=== PATIENT | female | born 1975 ===

== ENCOUNTER 2020-08-31 15:12 | Outpatient (REF) | payer MEDICAID, SELFPAY ==
--- NOTE | 2020-08-31 15:19 | MM_ITS ---
EXAMINATION: MM SCREENING DIGITAL BREAST TOMOSYNTHESIS, BILATERAL CLINICAL INFORMATION: Screening. Asymptomatic. The lifetime risk of breast cancer based on the Tyrer-Cuzick Model is 7%. COMPARISON: Mammography: Initial exam TECHNIQUE: Digital breast tomosynthesis is performed in both the craniocaudal and mediolateral oblique views along with computer-aided detection (CAD). Synthesized 2D images are generated from the tomosynthesis. Craniocaudal view of the right breast axilla using digital breast Tomosynthesis was. FINDINGS: There are scattered areas of fibroglandular density (ACR BI-RADS breast composition Category b). There are no significant masses, abnormal calcifications, or other abnormalities. MM/MM tomosynthesis screening BI IMPRESSION: No mammographic evidence of malignancy. ASSESSMENT: BI-RADS 1: Negative RECOMMENDATION: Routine annual mammography screening. This patient's information was entered into a reminder system with a target due date for their next mammogram.
== END 2020-08-31 15:13 | disposition home or self-care (01) ==
LOC: HO.MAMMO 15:12
PROVIDERS: PCP Pediatrics; Visit Provider Pediatrics
DX: Z12.31 Encounter for screening mammogram for malignant neoplasm of breast (principal)
CPT/HCPCS: 77063; 77067

== ENCOUNTER 2022-08-03 15:10 | Emergency (ER) | payer MEDICAID, SELFPAY ==
[2022-08-03] VITALS (10 sets, daily range): BP systolic 132–159; BP diastolic 55–91; PULSE 64–98; RESP 14–20; TEMP 36.6–36.9; O2SAT 99–100; BMI 32.0
--- NOTE | 2022-08-03 15:16 | ECG_ITS ---
Test Reason : dizziness Blood Pressure : / mmHG Vent. Rate : 067 BPM Atrial Rate : 067 BPM P-R Int : 126 ms QRS Dur : 084 ms QT Int : 390 ms P-R-T Axes : 004 011 -03 degrees QTc Int : 412 ms Normal sinus rhythm with sinus arrhythmia Normal ECG When compared with ECG of 13-NOV-2019 08:19, Nonspecific T wave abnormality, improved in Anterolateral leads QT has shortened Referred By: Zulema Rosado Electronically Signed By:MEAGAN ADAMS MD
--- NOTE | 2022-08-03 15:19 | ED.GENADULT ---
HPI - General Adult General Chief complaint: General Medical <TAVO Kent - Last Filed: 08/03/22 16:07> Stated complaint: Diff Breathing <TAVO Kent - Last Filed: 08/03/22 16:07> Time Seen by Provider: 08/03/22 16:10 <TAVO Kent - Last Filed: 08/03/22 16:07> Source: patient and family <Hailey Baptiste MD - Last Filed: 08/04/22 02:42> Mode of arrival: ambulatory <Hailey Baptiste MD - Last Filed: 08/04/22 02:42> History of Present Illness HPI narrative: 46-year-old female with history of menorrhagia, diabetes as well as hypertension presents with concerns regarding shortness of breath that is been progressively worsening with time and 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 Patient states that she swallows water and it bothers her to eat. Otherwise, she denies any fever, chills, GI or symptoms and states her last menstrual period was approximately 3 weeks ago. She endorses that she informed her PCP almost a year ago that she wanted to have her uterus removed because of the large amount of menstrual bleeding that she was experiencing. Otherwise patient denies any chest pain/palpitations. She also denies any use of cigarettes or history of asthma. <Hailey Baptiste MD - Last Filed: 08/04/22 02:42> Related Data Allergies/adverse reactions: Allergies Allergy/AdvReac Type Severity Reaction Status Date / Time No Known Allergies Allergy Verified 08/03/22 15:15 <TAVO Kent - Last Filed: 08/03/22 16:07> Review of Systems Review of Systems: Pertinent positives and negatives as stated in HPI 10 point review of systems is otherwise negative. <Hailey Batpiste MD - Last Filed: 08/04/22 02:42> PMFSH Past Medical History Source: nursing notes reviewed <Hailey Baptiste MD - Last Filed: 08/04/22 02:42> Social History Social History: Social History Advance Directives: No Advance Directives Information Provided: No <TAVO Kent - Last Filed: 08/03/22 16:07> Physical Exam ED Vital Signs: Vital Signs - 24 hr 08/03/22 15:15 08/03/22 16:52 08/03/22 17:55 Temperature 97.9 F 98.0 F Pulse Rate 98 85 77 Respiratory Rate 18 18 18 Blood Pressure 142/72 H 154/65 H 143/76 H Pulse Oximetry 99 100 Oxygen Delivery Method Room Air Room Air 08/03/22 18:16 08/03/22 20:44 08/03/22 20:51 Temperature 98.2 F 98.5 F 98.5 F Pulse Rate 86 64 72 Respiratory Rate 14 14 14 Blood Pressure 146/91 H 159/79 H 159/79 H Pulse Oximetry Oxygen Delivery Method 08/03/22 22:30 08/03/22 21:07 08/03/22 23:30 Temperature 98.1 F 98.3 F 98.3 F Pulse Rate 72 78 78 Respiratory Rate 14 20 20 Blood Pressure 153/55 H 153/55 H 153/55 H Pulse Oximetry 100 Oxygen Delivery Method Room Air 08/03/22 23:48 08/04/22 00:06 08/04/22 02:06 Temperature 98.1 F 98.1 F Pulse Rate 81 77 60 Respiratory Rate 16 20 23 H Blood Pressure 132/72 144/78 H 163/71 H Pulse Oximetry Oxygen Delivery Method 08/04/22 02:12 08/04/22 02:08 08/04/22 02:38 Temperature 97.9 F 97.9 F 97.2 F Pulse Rate 60 59 62 Respiratory Rate 22 H 21 H 21 H Blood Pressure 163/71 H 163/71 H 153/94 H Pulse Oximetry 99 Oxygen Delivery Method Room Air BMI result Body Mass Index 32.0 <TAVO Kent - Last Filed: 08/03/22 16:07> Vital Signs - 24 hr 08/03/22 15:15 08/03/22 16:52 08/03/22 17:55 Temperature 97.9 F 98.0 F Pulse Rate 98 85 77 Respiratory Rate 18 18 18 Blood Pressure 142/72 H 154/65 H 143/76 H Pulse Oximetry 99 100 Oxygen Delivery Method Room Air Room Air 08/03/22 18:16 08/03/22 20:44 08/03/22 20:51 Temperature 98.2 F 98.5 F 98.5 F Pulse Rate 86 64 72 Respiratory Rate 14 14 14 Blood Pressure 146/91 H 159/79 H 159/79 H Pulse Oximetry Oxygen Delivery Method 08/03/22 22:30 08/03/22 21:07 08/03/22 23:30 Temperature 98.1 F 98.3 F 98.3 F Pulse Rate 72 78 78 Respiratory Rate 14 20 20 Blood Pressure 153/55 H 153/55 H 153/55 H Pulse Oximetry 100 Oxygen Delivery Method Room Air 08/03/22 23:48 08/04/22 00:06 08/04/22 02:06 Temperature 98.1 F 98.1 F Pulse Rate 81 77 60 Respiratory Rate 16 20 23 H Blood Pressure 132/72 144/78 H 163/71 H Pulse Oximetry Oxygen Delivery Method 08/04/22 02:12 08/04/22 02:08 08/04/22 02:38 Temperature 97.9 F 97.9 F 97.2 F Pulse Rate 60 59 62 Respiratory Rate 22 H 21 H 21 H Blood Pressure 163/71 H 163/71 H 153/94 H Pulse Oximetry 99 Oxygen Delivery Method Room Air BMI result Body Mass Index 32.0 VITAL SIGNS: Reviewed. GENERAL: Well developed, well nourished, in no acute distress. HEAD: Normocephalic/atraumatic EYES: PERRLA, EOMI EARS: Ext canals without abnormality OROPHARYNX: no oral lesions noted, posterior pharynx clear, pale mucosa NECK: Supple, no adenopathy LUNGS: Normal breath sounds. No adventitious sounds or accessory muscle use. SpO2<99> CARDIOVASCULAR: Regular rate and rhythm without noted murmurs ABDOMEN: Soft, non-tender, non-distended with bowel sounds. MUSCULOSKELETAL: No tenderness, deformities, or effusions noted on gross inspection. EXTREMITIES: No cyanosis, clubbing or edema. SKIN: Inspection of the skin reveals no rashes NEUROLOGIC: Alert and oriented x 4. Strength and sensation to light touch were grossly intact x 4. <Hailey Baptiste MD - Last Filed: 08/04/22 02:42> Course Course Course Narrative: RME--46yoF PMHx ACS c/o throat closing sensation and SOB with assoc dizziness s/p eating bread at work. Sx lasted few mins, feels better at present. EKG, Labs, COVID/flu, strep ordered in traige -1606--Critical H/H 5.6/21.5 > Occult stool, Type and Screen and 1U RBCs ordered in triage > pt being moved to the main ED <TAVO Kent - Last Filed: 08/03/22 16:07> RME--46yoF PMHx ACS c/o throat closing sensation and SOB with assoc dizziness s/p eating bread at work. Sx lasted few mins, feels better at present. EKG, Labs, COVID/flu, strep ordered in traige -1606--Critical H/H 5.6/21.5 > Occult stool, Type and Screen and 1U RBCs ordered in triage > pt being moved to the main ED This is a 46-year-old female with history and clinical presentation consistent with gradual and progressive blood loss anemia secondary to menorrhagia. MCV is chronically stable but there is some noted decrease and I do not feel that this is acute blood loss from other sources given patient's history. As she will be having her next menstrual cycle will transfuse with 3 units. Afterwards, she will be provided with a referral to follow-up with Dr. Walters. On re-evaluation patient is feeling much better after the 3 units RBCs, will repeat H&H and discharged home with a referral to follow-up with Dr. Walters. <Hailey Baptiste MD - Last Filed: 08/04/22 02:42> Medical Decision Making Lab Data Result diagrams: : 08/03/22 16:33 08/03/22 15:27 <TAVO Kent - Last Filed: 08/03/22 16:07> Labs: Lab Results 08/03/22 08/03/22 08/03/22 Range/Units 15:27 15:27 15:27 WBC 5.0 (4.8-10.8) X10*3/uL RBC 4.04 L (4.20-5.50) X10*6/uL Hgb 5.6 L* (12.0-16.0) g/dl Hct 21.5 L (37.0-47.0) % MCV 53.2 L (80.0-98.0) fL MCH 13.9 L (27.0-33.0) pg MCHC 26.0 L (31.0-35.0) g/dl RDW 20.5 H (11.0-16.0) % Plt Count 330 (160-400) X10*3/uL MPV Not Reportable Immature Gran % (Auto) Cancelled Neut % (Auto) Cancelled Lymph % (Auto) Cancelled [place] % (Auto) Cancelled Eos % (Auto) Cancelled Baso % (Auto) Cancelled Lymph # (Auto) Cancelled [place] # (Auto) Cancelled Eos # (Auto) Cancelled Baso # (Auto) Cancelled Abs Immat Gran (auto) Cancelled Absolute Neuts (auto) Cancelled Absolute Nucleated RBC 0.000 (0.0-0.012) X10*3/uL Nucleated RBC % (auto) 0.0 (0.0-0.2) /100WBC Neutrophils % (Manual) 58 (45-73) % Band Neutrophils % 0 L (3-5) % Lymphocytes % (Manual) 32 (20-40) % Monocytes % (Manual) 2 (2-11) % Eosinophils % (Manual) 2 (0-4) % Basophils % (Manual) 6 H (0-2) % Abs Neuts (Manual) 2.9 (2.0-8.3) X10*3/uL Lymphocytes # (Manual) 1.6 (1.2-4.9) X10*3/uL Monocytes # (Manual) 0.1 (0.1-1.2) X10*3/uL Eosinophils # (Manual) 0.1 (0.0-0.4) X10*3/uL Basophils # (Manual) 0.3 H (0.0-0.2) X10*3/uL Platelet Estimate NORMAL (NORMAL) Large Platelets PRESENT Plt Morphology Comment NOTED RBC Morphology NOTED Hypochromasia 3+ (>30) /OIF Microcytosis 2+ (15-30) /OIF Stomatocytes 1+ (5-14) /OIF Sodium 137 (135-145) mmol/L Potassium 4.0 (3.3-5.1) mmol/L Chloride 104 (96-108) mmol/L Carbon Dioxide 24 (22-29) mmol/L Anion Gap 13 (12-20) BUN 17 H (9-16) mg/dL Creatinine 0.79 (0.5-1.4) mg/dL Estim Creat Clear Calc 87.7 Estimated GFR > 60 Random Glucose 100 (60-115) mg/dL Calcium 8.6 (8.4-10.2) mg/dL Magnesium 1.9 (1.6-2.6) mg/dL Total Bilirubin 0.9 (0.0-1.0) mg/dL Direct Bilirubin 0.3 (0.0-0.5) mg/dL AST 16 (5-31) U/L ALT 12 (0-31) U/L Alkaline Phosphatase 54 (39-117) U/L Troponin I High Sens < 3.5 (<3.5-17.0) ng/L Total Protein 6.7 (6.5-8.0) g/dL Albumin 3.9 (3.5-5.0) g/dL Urine Color Urine Appearance Urine pH (5.0-9.0) Ur Specific [place] (1.005-1.025) Urine Protein (Neg-Trace) mg/dL Urine Glucose (UA) (Negative) mg/dL Urine Ketones (Negative) mg/dL Urine Blood (Negative) Urine Nitrite (Negative) Ur Leukocyte Esterase (Negative) COVID-19 (EDISON) (Negative) COVID-19 Clin Com Influenza Type A (JANICE) (Negative) Influenza Type B (JANICE) (Negative) Influenza A & B Note S. pyogenes GrpA JANICE (Negative) Blood Type Antibody Screen Crossmatch 08/03/22 08/03/22 08/03/22 Range/Units 15:27 15:27 15:27 WBC (4.8-10.8) X10*3/uL RBC (4.20-5.50) X10*6/uL Hgb (12.0-16.0) g/dl Hct (37.0-47.0) % MCV (80.0-98.0) fL MCH (27.0-33.0) pg MCHC (31.0-35.0) g/dl RDW (11.0-16.0) % Plt Count (160-400) X10*3/uL MPV Immature Gran % (Auto) Neut % (Auto) Lymph % (Auto) [place] % (Auto) Eos % (Auto) Baso % (Auto) Lymph # (Auto) [place] # (Auto) Eos # (Auto) Baso # (Auto) Abs Immat Gran (auto) Absolute Neuts (auto) Absolute Nucleated RBC (0.0-0.012) X10*3/uL Nucleated RBC % (auto) (0.0-0.2) /100WBC Neutrophils % (Manual) (45-73) % Band Neutrophils % (3-5) % Lymphocytes % (Manual) (20-40) % Monocytes % (Manual) (2-11) % Eosinophils % (Manual) (0-4) % Basophils % (Manual) (0-2) % Abs Neuts (Manual) (2.0-8.3) X10*3/uL Lymphocytes # (Manual) (1.2-4.9) X10*3/uL Monocytes # (Manual) (0.1-1.2) X10*3/uL Eosinophils # (Manual) (0.0-0.4) X10*3/uL Basophils # (Manual) (0.0-0.2) X10*3/uL Platelet Estimate (NORMAL) Large Platelets Plt Morphology Comment RBC Morphology Hypochromasia /OIF Microcytosis /OIF Stomatocytes /OIF Sodium (135-145) mmol/L Potassium (3.3-5.1) mmol/L Chloride (96-108) mmol/L Carbon Dioxide (22-29) mmol/L Anion Gap (12-20) BUN (9-16) mg/dL Creatinine (0.5-1.4) mg/dL Estim Creat Clear Calc Estimated GFR Random Glucose (60-115) mg/dL Calcium (8.4-10.2) mg/dL Magnesium (1.6-2.6) mg/dL Total Bilirubin (0.0-1.0) mg/dL Direct Bilirubin (0.0-0.5) mg/dL AST (5-31) U/L ALT (0-31) U/L Alkaline Phosphatase (39-117) U/L Troponin I High Sens (<3.5-17.0) ng/L Total Protein (6.5-8.0) g/dL Albumin (3.5-5.0) g/dL Urine Color Urine Appearance Urine pH (5.0-9.0) Ur Specific [place] (1.005-1.025) Urine Protein (Neg-Trace) mg/dL Urine Glucose (UA) (Negative) mg/dL Urine Ketones (Negative) mg/dL Urine Blood (Negative) Urine Nitrite (Negative) Ur Leukocyte Esterase (Negative) COVID-19 (EDISON) Negative (Negative) COVID-19 Clin Com See Note Influenza Type A (JANICE) Negative (Negative) Influenza Type B (JANICE) Negative (Negative) Influenza A & B Note See Note S. pyogenes GrpA JANICE Negative (Negative) Blood Type Antibody Screen Crossmatch 08/03/22 08/03/22 08/03/22 Range/Units 16:33 16:47 17:22 WBC (4.8-10.8) X10*3/uL RBC (4.20-5.50) X10*6/uL Hgb 5.9 L* (12.0-16.0) g/dl Hct 22.3 L (37.0-47.0) % MCV (80.0-98.0) fL MCH (27.0-33.0) pg MCHC (31.0-35.0) g/dl RDW (11.0-16.0) % Plt Count (160-400) X10*3/uL MPV Immature Gran % (Auto) Neut % (Auto) Lymph % (Auto) [place] % (Auto) Eos % (Auto) Baso % (Auto) Lymph # (Auto) [place] # (Auto) Eos # (Auto) Baso # (Auto) Abs Immat Gran (auto) Absolute Neuts (auto) Absolute Nucleated RBC (0.0-0.012) X10*3/uL Nucleated RBC % (auto) (0.0-0.2) /100WBC Neutrophils % (Manual) (45-73) % Band Neutrophils % (3-5) % Lymphocytes % (Manual) (20-40) % Monocytes % (Manual) (2-11) % Eosinophils % (Manual) (0-4) % Basophils % (Manual) (0-2) % Abs Neuts (Manual) (2.0-8.3) X10*3/uL Lymphocytes # (Manual) (1.2-4.9) X10*3/uL Monocytes # (Manual) (0.1-1.2) X10*3/uL Eosinophils # (Manual) (0.0-0.4) X10*3/uL Basophils # (Manual) (0.0-0.2) X10*3/uL Platelet Estimate (NORMAL) Large Platelets Plt Morphology Comment RBC Morphology Hypochromasia /OIF Microcytosis /OIF Stomatocytes /OIF Sodium (135-145) mmol/L Potassium (3.3-5.1) mmol/L Chloride (96-108) mmol/L Carbon Dioxide (22-29) mmol/L Anion Gap (12-20) BUN (9-16) mg/dL Creatinine (0.5-1.4) mg/dL Estim Creat Clear Calc Estimated GFR Random Glucose (60-115) mg/dL Calcium (8.4-10.2) mg/dL Magnesium (1.6-2.6) mg/dL Total Bilirubin (0.0-1.0) mg/dL Direct Bilirubin (0.0-0.5) mg/dL AST (5-31) U/L ALT (0-31) U/L Alkaline Phosphatase (39-117) U/L Troponin I High Sens (<3.5-17.0) ng/L Total Protein (6.5-8.0) g/dL Albumin (3.5-5.0) g/dL Urine Color Yellow Urine Appearance Clear Urine pH 5.5 (5.0-9.0) Ur Specific [place] 1.015 (1.005-1.025) Urine Protein Negative (Neg-Trace) mg/dL Urine Glucose (UA) Negative (Negative) mg/dL Urine Ketones Negative (Negative) mg/dL Urine Blood Negative (Negative) Urine Nitrite Negative (Negative) Ur Leukocyte Esterase Negative (Negative) COVID-19 (EDISON) (Negative) COVID-19 Clin Com Influenza Type A (JANICE) (Negative) Influenza Type B (JANICE) (Negative) Influenza A & B Note S. pyogenes GrpA JANICE (Negative) Blood Type O Positive Antibody Screen NEGATIVE Crossmatch See Detail <TAVO Kent - Last Filed: 08/03/22 16:07> Lab Results 08/03/22 08/03/22 08/03/22 Range/Units 15:27 15:27 15:27 WBC 5.0 (4.8-10.8) X10*3/uL RBC 4.04 L (4.20-5.50) X10*6/uL Hgb 5.6 L* (12.0-16.0) g/dl Hct 21.5 L (37.0-47.0) % MCV 53.2 L (80.0-98.0) fL MCH 13.9 L (27.0-33.0) pg MCHC 26.0 L (31.0-35.0) g/dl RDW 20.5 H (11.0-16.0) % Plt Count 330 (160-400) X10*3/uL MPV Not Reportable Immature Gran % (Auto) Cancelled Neut % (Auto) Cancelled Lymph % (Auto) Cancelled [place] % (Auto) Cancelled Eos % (Auto) Cancelled Baso % (Auto) Cancelled Lymph # (Auto) Cancelled [place] # (Auto) Cancelled Eos # (Auto) Cancelled Baso # (Auto) Cancelled Abs Immat Gran (auto) Cancelled Absolute Neuts (auto) Cancelled Absolute Nucleated RBC 0.000 (0.0-0.012) X10*3/uL Nucleated RBC % (auto) 0.0 (0.0-0.2) /100WBC Neutrophils % (Manual) 58 (45-73) % Band Neutrophils % 0 L (3-5) % Lymphocytes % (Manual) 32 (20-40) % Monocytes % (Manual) 2 (2-11) % Eosinophils % (Manual) 2 (0-4) % Basophils % (Manual) 6 H (0-2) % Abs Neuts (Manual) 2.9 (2.0-8.3) X10*3/uL Lymphocytes # (Manual) 1.6 (1.2-4.9) X10*3/uL Monocytes # (Manual) 0.1 (0.1-1.2) X10*3/uL Eosinophils # (Manual) 0.1 (0.0-0.4) X10*3/uL Basophils # (Manual) 0.3 H (0.0-0.2) X10*3/uL Platelet Estimate NORMAL (NORMAL) Large Platelets PRESENT Plt Morphology Comment NOTED RBC Morphology NOTED Hypochromasia 3+ (>30) /OIF Microcytosis 2+ (15-30) /OIF Stomatocytes 1+ (5-14) /OIF Sodium 137 (135-145) mmol/L Potassium 4.0 (3.3-5.1) mmol/L Chloride 104 (96-108) mmol/L Carbon Dioxide 24 (22-29) mmol/L Anion Gap 13 (12-20) BUN 17 H (9-16) mg/dL Creatinine 0.79 (0.5-1.4) mg/dL Estim Creat Clear Calc 87.7 Estimated GFR > 60 Random Glucose 100 (60-115) mg/dL Calcium 8.6 (8.4-10.2) mg/dL Magnesium 1.9 (1.6-2.6) mg/dL Total Bilirubin 0.9 (0.0-1.0) mg/dL Direct Bilirubin 0.3 (0.0-0.5) mg/dL AST 16 (5-31) U/L ALT 12 (0-31) U/L Alkaline Phosphatase 54 (39-117) U/L Troponin I High Sens < 3.5 (<3.5-17.0) ng/L Total Protein 6.7 (6.5-8.0) g/dL Albumin 3.9 (3.5-5.0) g/dL Urine Color Urine Appearance Urine pH (5.0-9.0) Ur Specific [place] (1.005-1.025) Urine Protein (Neg-Trace) mg/dL Urine Glucose (UA) (Negative) mg/dL Urine Ketones (Negative) mg/dL Urine Blood (Negative) Urine Nitrite (Negative) Ur Leukocyte Esterase (Negative) COVID-19 (EDISON) (Negative) COVID-19 Clin Com Influenza Type A (JANICE) (Negative) Influenza Type B (JANICE) (Negative) Influenza A & B Note S. pyogenes GrpA JANICE (Negative) Blood Type Antibody Screen Crossmatch 08/03/22 08/03/22 08/03/22 Range/Units 15:27 15:27 15:27 WBC (4.8-10.8) X10*3/uL RBC (4.20-5.50) X10*6/uL Hgb (12.0-16.0) g/dl Hct (37.0-47.0) % MCV (80.0-98.0) fL MCH (27.0-33.0) pg MCHC (31.0-35.0) g/dl RDW (11.0-16.0) % Plt Count (160-400) X10*3/uL MPV Immature Gran % (Auto) Neut % (Auto) Lymph % (Auto) [place] % (Auto) Eos % (Auto) Baso % (Auto) Lymph # (Auto) [place] # (Auto) Eos # (Auto) Baso # (Auto) Abs Immat Gran (auto) Absolute Neuts (auto) Absolute Nucleated RBC (0.0-0.012) X10*3/uL Nucleated RBC % (auto) (0.0-0.2) /100WBC Neutrophils % (Manual) (45-73) % Band Neutrophils % (3-5) % Lymphocytes % (Manual) (20-40) % Monocytes % (Manual) (2-11) % Eosinophils % (Manual) (0-4) % Basophils % (Manual) (0-2) % Abs Neuts (Manual) (2.0-8.3) X10*3/uL Lymphocytes # (Manual) (1.2-4.9) X10*3/uL Monocytes # (Manual) (0.1-1.2) X10*3/uL Eosinophils # (Manual) (0.0-0.4) X10*3/uL Basophils # (Manual) (0.0-0.2) X10*3/uL Platelet Estimate (NORMAL) Large Platelets Plt Morphology Comment RBC Morphology Hypochromasia /OIF Microcytosis /OIF Stomatocytes /OIF Sodium (135-145) mmol/L Potassium (3.3-5.1) mmol/L Chloride (96-108) mmol/L Carbon Dioxide (22-29) mmol/L Anion Gap (12-20) BUN (9-16) mg/dL Creatinine (0.5-1.4) mg/dL Estim Creat Clear Calc Estimated GFR Random Glucose (60-115) mg/dL Calcium (8.4-10.2) mg/dL Magnesium (1.6-2.6) mg/dL Total Bilirubin (0.0-1.0) mg/dL Direct Bilirubin (0.0-0.5) mg/dL AST (5-31) U/L ALT (0-31) U/L Alkaline Phosphatase (39-117) U/L Troponin I High Sens (<3.5-17.0) ng/L Total Protein (6.5-8.0) g/dL Albumin (3.5-5.0) g/dL Urine Color Urine Appearance Urine pH (5.0-9.0) Ur Specific [place] (1.005-1.025) Urine Protein (Neg-Trace) mg/dL Urine Glucose (UA) (Negative) mg/dL Urine Ketones (Negative) mg/dL Urine Blood (Negative) Urine Nitrite (Negative) Ur Leukocyte Esterase (Negative) COVID-19 (EDISON) Negative (Negative) COVID-19 Clin Com See Note Influenza Type A (JANICE) Negative (Negative) Influenza Type B (JANICE) Negative (Negative) Influenza A & B Note See Note S. pyogenes GrpA JANICE Negative (Negative) Blood Type Antibody Screen Crossmatch 08/03/22 08/03/22 08/03/22 Range/Units 16:33 16:47 17:22 WBC (4.8-10.8) X10*3/uL RBC (4.20-5.50) X10*6/uL Hgb 5.9 L* (12.0-16.0) g/dl Hct 22.3 L (37.0-47.0) % MCV (80.0-98.0) fL MCH (27.0-33.0) pg MCHC (31.0-35.0) g/dl RDW (11.0-16.0) % Plt Count (160-400) X10*3/uL MPV Immature Gran % (Auto) Neut % (Auto) Lymph % (Auto) [place] % (Auto) Eos % (Auto) Baso % (Auto) Lymph # (Auto) [place] # (Auto) Eos # (Auto) Baso # (Auto) Abs Immat Gran (auto) Absolute Neuts (auto) Absolute Nucleated RBC (0.0-0.012) X10*3/uL Nucleated RBC % (auto) (0.0-0.2) /100WBC Neutrophils % (Manual) (45-73) % Band Neutrophils % (3-5) % Lymphocytes % (Manual) (20-40) % Monocytes % (Manual) (2-11) % Eosinophils % (Manual) (0-4) % Basophils % (Manual) (0-2) % Abs Neuts (Manual) (2.0-8.3) X10*3/uL Lymphocytes # (Manual) (1.2-4.9) X10*3/uL Monocytes # (Manual) (0.1-1.2) X10*3/uL Eosinophils # (Manual) (0.0-0.4) X10*3/uL Basophils # (Manual) (0.0-0.2) X10*3/uL Platelet Estimate (NORMAL) Large Platelets Plt Morphology Comment RBC Morphology Hypochromasia /OIF Microcytosis /OIF Stomatocytes /OIF Sodium (135-145) mmol/L Potassium (3.3-5.1) mmol/L Chloride (96-108) mmol/L Carbon Dioxide (22-29) mmol/L Anion Gap (12-20) BUN (9-16) mg/dL Creatinine (0.5-1.4) mg/dL Estim Creat Clear Calc Estimated GFR Random Glucose (60-115) mg/dL Calcium (8.4-10.2) mg/dL Magnesium (1.6-2.6) mg/dL Total Bilirubin (0.0-1.0) mg/dL Direct Bilirubin (0.0-0.5) mg/dL AST (5-31) U/L ALT (0-31) U/L Alkaline Phosphatase (39-117) U/L Troponin I High Sens (<3.5-17.0) ng/L Total Protein (6.5-8.0) g/dL Albumin (3.5-5.0) g/dL Urine Color Yellow Urine Appearance Clear Urine pH 5.5 (5.0-9.0) Ur Specific [place] 1.015 (1.005-1.025) Urine Protein Negative (Neg-Trace) mg/dL Urine Glucose (UA) Negative (Negative) mg/dL Urine Ketones Negative (Negative) mg/dL Urine Blood Negative (Negative) Urine Nitrite Negative (Negative) Ur Leukocyte Esterase Negative (Negative) COVID-19 ([place]) (Negative) COVID-19 Clin Com Influenza Type A ([facility]ANICE) (Negative) Influenza Type B (JANICE) (Negative) Influenza A & B Note S. pyogenes GrpA JANICE (Negative) Blood Type O Positive Antibody Screen NEGATIVE Crossmatch See Detail <Hailey Baptiste MD - Last Filed: 08/04/22 02:42> ECG Data Attestation: I personally reviewed and interpreted this ECG as follows: <Hailey Baptiste MD - Last Filed: 08/04/22 02:42> Prior ECG tracings: available for review <Hailey Baptiste MD - Last Filed: 08/04/22 02:42> Interpretation: NSR, HR-67, no STEMI, OK/QRS/QTC is within normal limits. <Hailey Baptiste MD - Last Filed: 08/04/22 02:42> Critical Care Time Critical Care Time Critical Care Time: Yes <Hailey Baptiste MD - Last Filed: 08/04/22 02:42> Total Critical Care Time: 30 <Hailey Baptiste MD - Last Filed: 08/04/22 02:42> Attestation: I personally attest to this time spent taking care of the patient. <Hailey Baptiste MD - Last Filed: 08/04/22 02:42> Discharge Plan Discharge Clinical Impression: Menorrhagia, Acute blood loss anemia <TAVO Kent - Last Filed: 08/03/22 16:07> Patient Disposition: Home, Self-Care <TAVO Kent - Last Filed: 08/03/22 16:07> Instructions: Menorrhagia (ED), Anemia (ED) <TAVO Kent - Last Filed: 08/03/22 16:07> Additional Instructions: 1. Start taking [id number] iron pills, daily. 2. You have been given a referral to follow-up with Dr. Walters (gynecology). 3. Follow-up with your primary care provider as well. Return to the ER for worsening symptoms. <TAVO Kent - Last Filed: 08/03/22 16:07> Referrals: Itzel Ashford MD [Primary Care Provider] - Jason Walters MD [Physician] - <TAVO Kent - Last Filed: 08/03/22 16:07>
[2022-08-03 15:36] LABS: Hematocrit 21.5 % (37.0-47.0); Mean Corpuscular Hemoglobin 13.9 pg (27.0-33.0); PLT CLUMP 1; Red Blood Count 4.04 X10*6/uL (4.20-5.50); Red Cell Distribution Width 20.5 % (11.0-16.0)
[2022-08-03 15:48] LABS: Alanine Aminotransferase 12 U/L (0-31); Albumin Level 3.9 g/dL (3.5-5.0); Alkaline Phosphatase 54 U/L (39-117); Anion Gap 13 (12-20); Aspartate Amino Transferase 16 U/L (5-31); Bilirubin Direct 0.3 mg/dL (0.0-0.5); Bilirubin Total 0.9 mg/dL (0.0-1.0); Blood Urea Nitrogen 17 mg/dL (9-16); Calcium 8.6 mg/dL (8.4-10.2); Carbon Dioxide 24 mmol/L (22-29); Chloride 104 mmol/L (96-108); Creatinine Clr Calc Pharmacy 87.7; Estimated Glomerular Filt Rate > 60; Glucose Random 100 mg/dL (60-115); Sodium 137 mmol/L (135-145); Total Protein 6.7 g/dL (6.5-8.0)
[2022-08-03 15:50] LABS: Strep A Nucleic Acid Negative (Negative)
[2022-08-03 15:52] LABS: Troponin-I High Sensitivity < 3.5 ng/L (<3.5-17.0)
[2022-08-03 15:54] LABS: COVID-19 Test Negative (Negative); IDNOW Serial# 16C4AD1C; Influenza A Negative (Negative); Influenza B2 Negative (Negative)
[2022-08-03 16:02] LABS: Mean Corpuscular Volume 53.2 fL (80.0-98.0); PLT ABN DIST 1
[2022-08-03 16:03] LABS: Platelet Count 330 X10*3/uL (160-400)
[2022-08-03 16:06] LABS: Hemoglobin 5.6 g/dl (12.0-16.0)
[2022-08-03 16:21] LABS: Band Neutrophils Percent 0 % (3-5); Basophils Abs Manual 0.3 X10*3/uL (0.0-0.2); Basophils Percent Manual 6 % (0-2); Eosinophils Absolute Manual 0.1 X10*3/uL (0.0-0.4); Eosinophils Percent Manual 2 % (0-4); Hypochromasia 3+ (>30) /OIF; Large Platelet PRESENT; Lymphocytes Absolute Manual 1.6 X10*3/uL (1.2-4.9); Lymphocytes Percent Manual 32 % (20-40); Microcytosis 2+ (15-30) /OIF; Monocytes Absolute Manual 0.1 X10*3/uL (0.1-1.2); Monocytes Percent Manual 2 % (2-11); Neutrophils Absolute Manual 2.9 X10*3/uL (2.0-8.3); Neutrophils Percent Manual 58 % (45-73); Platelet Estimate NORMAL (NORMAL); Platelet Morphology Comment NOTED; RBC Morphology NOTED; Stomatocytes 1+ (5-14) /OIF
[2022-08-03 16:41] LABS: Magnesium 1.9 mg/dL (1.6-2.6)
[2022-08-03 16:50] LABS: Hematocrit 22.3 % (37.0-47.0)
[2022-08-03 17:00] LABS: Hemoglobin 5.9 g/dl (12.0-16.0)
--- NOTE | 2022-08-03 17:08 | PC.NURSE ---
PT c/o of increase tiredness, fatigue, and weakness for about 2 weeks. Denies chest pain and dizziness. LSCTA.
[2022-08-03 17:37] LABS: Appearance Urine Clear; Color Urine Yellow; Glucose Urine UA Negative (Negative); Leukocyte Esterase Urine Negative (Negative); Nitrite Urine Negative (Negative); PH 5.5 (5.0-9.0); Specific Gravity - Urine 1.015 (1.005-1.025); Urine Blood Negative (Negative); Urine Ketones Negative (Negative); Urine Protein Negative (Neg-Trace)
--- NOTE | 2022-08-03 18:17 | PC.NURSE ---
First unit of blood transfusion started. PT denies nausea, CP, and chills. Afebrile. VSS.
[2022-08-04 00:06] VITALS: BP 144/78; PULSE 77; RESP 20; TEMP 36.7
[2022-08-04 02:06] VITALS: BP 163/71; PULSE 60; RESP 23
[2022-08-04 02:08] VITALS: BP 163/71; PULSE 59; RESP 21; TEMP 36.6; O2SAT 99
[2022-08-04 02:12] VITALS: BP 163/71; PULSE 60; RESP 22; TEMP 36.6
[2022-08-04 02:38] VITALS: BP 153/94; PULSE 62; RESP 21; TEMP 36.2
[2022-08-04 02:58] VITALS: BP 155/87; PULSE 62; RESP 14; TEMP 36.6; O2SAT 99
[2022-08-04 03:19] LABS: Hematocrit 31.1 % (37.0-47.0); Hemoglobin 9.2 g/dl (12.0-16.0)
== END 2022-08-04 04:43 | disposition home or self-care (01) ==
PROVIDERS: Physician Assistant; Student in an Organized Health Care Education/Training Program; Emergency Provider Internal Medicine; PCP Pediatrics
DX: N92.0 Excessive and frequent menstruation with regular cycle (principal); D62 Acute posthemorrhagic anemia; R06.02 Shortness of breath; E11.9 Type 2 diabetes mellitus without complications; I10 Essential (primary) hypertension; Z20.822 Contact with and (suspected) exposure to COVID-19
CPT/HCPCS: 36415; 36430; 80048; 80076; 81003; 83735; 84484; 85007; 85014; 85018; 85025; 85027; 86850; 86900; 86901; 86923; 87502; 87635; 87651; 93005; 99284; 99285; P9016

== ENCOUNTER 2022-10-27 18:41 | Emergency (ER) | payer MEDICAID, SELFPAY ==
--- NOTE | ~2022-10-27 | XR_ITS ---
EXAMINATION: XR CHEST CLINICAL INFORMATION: Chest pain COMPARISON: None TECHNIQUE: 2 views of the chest were obtained. FINDINGS: No significant abnormality is noted involving the heart, lungs, mediastinum, bony thorax or soft tissues. XR/XR chest 2V IMPRESSION: Unremarkable chest examination.
[2022-10-27 18:46] VITALS: BP 188/101; PULSE 76; RESP 18; TEMP 36.7; O2SAT 100; BMI 34.3
--- NOTE | 2022-10-27 18:46 | ED.GENADULT ---
HPI - General Adult General Chief complaint: Chest Pain <TAVO Bahena - Last Filed: 10/27/22 18:48> Stated complaint: Vision Blurry, Chest pain <TAVO Bahena - Last Filed: 10/27/22 18:48> Time Seen by Provider: 10/27/22 20:21 <TAVO Bahena - Last Filed: 10/27/22 18:48> Source: patient <Benny Petersen MD - Last Filed: 10/28/22 00:33> Mode of arrival: ambulatory <Benny Petersen MD - Last Filed: 10/28/22 00:33> Limitations: no limitations <Benny Petersen MD - Last Filed: 10/28/22 00:33> History of Present Illness HPI narrative: Patient with history of hypertension used to take medication 2 years ago after gastric sleeve surgery patient's blood pressure been stable and not taking her medications as she does not need the medication for blood pressure anymore today while at work patient felt as if she had high blood pressure so she took aspirin and lisinopril on arrival patient's blood pressure was 188/101 patient does have anxiety and stress increased blood pressure also <Benny Petersen MD - Last Filed: 10/28/22 00:33> Related Data Allergies/adverse reactions: Allergies Allergy/AdvReac Type Severity Reaction Status Date / Time No Known Allergies Allergy Verified 08/03/22 15:15 <TAVO Bahena - Last Filed: 10/27/22 18:48> Review of Systems Review of Systems: Yes all other systems are reviewed and are negative <Benny Petersen MD - Last Filed: 10/28/22 00:33> [facility] Social History Social History: Social History Advance Directives: No Advance Directives Information Provided: No <TAVO Bahena - Last Filed: 10/27/22 18:48> Physical Exam ED Vital Signs: Vital Signs - 24 hr 10/27/22 18:46 10/27/22 20:12 Temperature 98.0 F 98.3 F Pulse Rate 76 61 Respiratory Rate 18 16 Blood Pressure 188/101 H 160/82 H Pulse Oximetry 100 100 Oxygen Delivery Method Room Air Room Air BMI result Body Mass Index 34.3 <TAVO Bahena - Last Filed: 10/27/22 18:48> Vital Signs - 24 hr 10/27/22 18:46 10/27/22 20:12 Temperature 98.0 F 98.3 F Pulse Rate 76 61 Respiratory Rate 18 16 Blood Pressure 188/101 H 160/82 H Pulse Oximetry 100 100 Oxygen Delivery Method Room Air Room Air BMI result Body Mass Index 34.3 <Benny Petersen MD - Last Filed: 10/28/22 00:33> Appearance: Alert. Oriented X3. No acute distress. Eyes: No pallor or icterus ENT: Pharynx normal. Oral Mucosa moist Neck: Normal inspection. Neck supple. CVS: Normal heart rate and rhythm. Pulses normal. Respiratory: No respiratory distress. Equal air entry bilateral, no wheezing/rales/rhonchi Abdomen: Soft and nontender. Bowel sounds are present, no mass palpable, no CVA tenderness Skin: Skin warm and dry. Normal skin color. Normal skin turgor. Extremities: No lower extremity edema. No calf tenderness Neuro: Oriented X 3. No motor deficit. No sensory deficit.No cerebellar signs , cranial nerves II-XII intact <Benny Petersen MD - Last Filed: 10/28/22 00:33> Course Course Course Narrative: RME performed by Brinda Schulz PA-C. Patient is a 47 year old female presenting to the emergency department with palpitations. Patient states that she was having chest pain at work and took her blood pressure medication just in case her blood pressure was high . Labs, EKG, CXR ordered. Patient placed back in the waiting room pending room availability and results. <TAVO Bahena - Last Filed: 10/27/22 18:48> Medical Decision Making Medical Decision Making MDM Narrative: Patient with. Family history of hypertension with history of hypertension which improved after gastric sleeve surgery now having blood pressure again. Advised to continue lisinopril and hydrochlorothiazide as prescribed and follow with PCP <Benny Petersen MD - Last Filed: 10/28/22 00:33> Lab Data MDM Lab Attestation statement: I reviewed the patient's lab results. <Benny Petersen MD - Last Filed: 10/28/22 00:33> Result Diagrams: 10/27/22 19:21 10/27/22 19:21 <TAVO Bahena - Last Filed: 10/27/22 18:48> Labs: Lab Results 10/27/22 10/27/22 10/27/22 Range/Units 19:21 19:21 19:21 WBC 5.0 (4.8-10.8) X10*3/uL RBC 4.35 (4.20-5.50) X10*6/uL Hgb 9.5 L (12.0-16.0) g/dl Hct 30.9 L (37.0-47.0) % MCV 71.0 L (80.0-98.0) fL MCH 21.8 L (27.0-33.0) pg MCHC 30.7 L (31.0-35.0) g/dl RDW 17.4 H (11.0-16.0) % Plt Count 322 (160-400) X10*3/uL MPV 10.1 (9.4-12.3) fL Immature Gran % (Auto) 0.0 (0.0-0.4) % Neut % (Auto) 55.9 (45-73) % Lymph % (Auto) 32.0 (20-40) % [place] % (Auto) 8.7 (2-11) % Eos % (Auto) 2.2 (0-4) % Baso % (Auto) 1.2 (0-2) % Lymph # (Auto) 1.6 (1.2-4.9) X10*3/uL [place] # (Auto) 0.4 (0.1-1.2) X10*3/uL Eos # (Auto) 0.1 (0.0-0.4) X10*3/uL Baso # (Auto) 0.1 (0.0-0.2) X10*3/uL Abs Immat Gran (auto) 0.00 (0.00-0.03) X10*3/uL Absolute Neuts (auto) 2.8 (2.0-8.3) x10*3/uL Absolute Nucleated RBC 0.000 (0.0-0.012) X10*3/uL Nucleated RBC % (auto) 0.0 (0.0-0.2) /100WBC Sodium 138 (135-145) mmol/L Potassium 3.7 (3.3-5.1) mmol/L Chloride 104 (96-108) mmol/L Carbon Dioxide 23 (22-29) mmol/L Anion Gap 15 (12-20) BUN 13 (9-16) mg/dL Creatinine 0.72 (0.5-1.4) mg/dL Estim Creat Clear Calc 98.8 Estimated GFR > 60 Random Glucose 121 H (60-115) mg/dL Calcium 9.1 (8.4-10.2) mg/dL Magnesium 2.2 (1.6-2.6) mg/dL Total Bilirubin 0.8 (0.0-1.0) mg/dL AST 19 (5-31) U/L ALT 14 (0-31) U/L Alkaline Phosphatase 67 (39-117) U/L Troponin I High Sens < 3.5 (<3.5-17.0) ng/L Total Protein 6.9 (6.5-8.0) g/dL Albumin 4.0 (3.5-5.0) g/dL Influenza Type A (PCR) (Negative) Influenza Type B (PCR) (Negative) RSV RNA Qual (PCR) (Negative) SARS-CoV-2 RNA (RT-PCR) (Negative) 10/27/22 Range/Units 19:21 WBC (4.8-10.8) X10*3/uL RBC (4.20-5.50) X10*6/uL Hgb (12.0-16.0) g/dl Hct (37.0-47.0) % MCV (80.0-98.0) fL MCH (27.0-33.0) pg MCHC (31.0-35.0) g/dl RDW (11.0-16.0) % Plt Count (160-400) X10*3/uL MPV (9.4-12.3) fL Immature Gran % (Auto) (0.0-0.4) % Neut % (Auto) (45-73) % Lymph % (Auto) (20-40) % [place] % (Auto) (2-11) % Eos % (Auto) (0-4) % Baso % (Auto) (0-2) % Lymph # (Auto) (1.2-4.9) X10*3/uL [place] # (Auto) (0.1-1.2) X10*3/uL Eos # (Auto) (0.0-0.4) X10*3/uL Baso # (Auto) (0.0-0.2) X10*3/uL Abs Immat Gran (auto) (0.00-0.03) X10*3/uL Absolute Neuts (auto) (2.0-8.3) x10*3/uL Absolute Nucleated RBC (0.0-0.012) X10*3/uL Nucleated RBC % (auto) (0.0-0.2) /100WBC Sodium (135-145) mmol/L Potassium (3.3-5.1) mmol/L Chloride (96-108) mmol/L Carbon Dioxide (22-29) mmol/L Anion Gap (12-20) BUN (9-16) mg/dL Creatinine (0.5-1.4) mg/dL Estim Creat Clear Calc Estimated GFR Random Glucose (60-115) mg/dL Calcium (8.4-10.2) mg/dL Magnesium (1.6-2.6) mg/dL Total Bilirubin (0.0-1.0) mg/dL AST (5-31) U/L ALT (0-31) U/L Alkaline Phosphatase (39-117) U/L Troponin I High Sens (<3.5-17.0) ng/L Total Protein (6.5-8.0) g/dL Albumin (3.5-5.0) g/dL Influenza Type A (PCR) NEGATIVE (Negative) Influenza Type B (PCR) NEGATIVE (Negative) RSV RNA Qual (PCR) NEGATIVE (Negative) SARS-CoV-2 RNA (RT-PCR) NEGATIVE (Negative) <TAVO Bahena - Last Filed: 10/27/22 18:48> Lab Results 10/27/22 10/27/22 10/27/22 Range/Units 19:21 19:21 19:21 WBC 5.0 (4.8-10.8) X10*3/uL RBC 4.35 (4.20-5.50) X10*6/uL Hgb 9.5 L (12.0-16.0) g/dl Hct 30.9 L (37.0-47.0) % MCV 71.0 L (80.0-98.0) fL MCH 21.8 L (27.0-33.0) pg MCHC 30.7 L (31.0-35.0) g/dl RDW 17.4 H (11.0-16.0) % Plt Count 322 (160-400) X10*3/uL MPV 10.1 (9.4-12.3) fL Immature Gran % (Auto) 0.0 (0.0-0.4) % Neut % (Auto) 55.9 (45-73) % Lymph % (Auto) 32.0 (20-40) % [place] % (Auto) 8.7 (2-11) % Eos % (Auto) 2.2 (0-4) % Baso % (Auto) 1.2 (0-2) % Lymph # (Auto) 1.6 (1.2-4.9) X10*3/uL [place] # (Auto) 0.4 (0.1-1.2) X10*3/uL Eos # (Auto) 0.1 (0.0-0.4) X10*3/uL Baso # (Auto) 0.1 (0.0-0.2) X10*3/uL Abs Immat Gran (auto) 0.00 (0.00-0.03) X10*3/uL Absolute Neuts (auto) 2.8 (2.0-8.3) x10*3/uL Absolute Nucleated RBC 0.000 (0.0-0.012) X10*3/uL Nucleated RBC % (auto) 0.0 (0.0-0.2) /100WBC Sodium 138 (135-145) mmol/L Potassium 3.7 (3.3-5.1) mmol/L Chloride 104 (96-108) mmol/L Carbon Dioxide 23 (22-29) mmol/L Anion Gap 15 (12-20) BUN 13 (9-16) mg/dL Creatinine 0.72 (0.5-1.4) mg/dL Estim Creat Clear Calc 98.8 Estimated GFR > 60 Random Glucose 121 H (60-115) mg/dL Calcium 9.1 (8.4-10.2) mg/dL Magnesium 2.2 (1.6-2.6) mg/dL Total Bilirubin 0.8 (0.0-1.0) mg/dL AST 19 (5-31) U/L ALT 14 (0-31) U/L Alkaline Phosphatase 67 (39-117) U/L Troponin I High Sens < 3.5 (<3.5-17.0) ng/L Total Protein 6.9 (6.5-8.0) g/dL Albumin 4.0 (3.5-5.0) g/dL Influenza Type A (PCR) (Negative) Influenza Type B (PCR) (Negative) RSV RNA Qual (PCR) (Negative) SARS-CoV-2 RNA (RT-PCR) (Negative) 10/27/22 Range/Units 19:21 WBC (4.8-10.8) X10*3/uL RBC (4.20-5.50) X10*6/uL Hgb (12.0-16.0) g/dl Hct (37.0-47.0) % MCV (80.0-98.0) fL MCH (27.0-33.0) pg MCHC (31.0-35.0) g/dl RDW (11.0-16.0) % Plt Count (160-400) X10*3/uL MPV (9.4-12.3) fL Immature Gran % (Auto) (0.0-0.4) % Neut % (Auto) (45-73) % Lymph % (Auto) (20-40) % [place] % (Auto) (2-11) % Eos % (Auto) (0-4) % Baso % (Auto) (0-2) % Lymph # (Auto) (1.2-4.9) X10*3/uL [place] # (Auto) (0.1-1.2) X10*3/uL Eos # (Auto) (0.0-0.4) X10*3/uL Baso # (Auto) (0.0-0.2) X10*3/uL Abs Immat Gran (auto) (0.00-0.03) X10*3/uL Absolute Neuts (auto) (2.0-8.3) x10*3/uL Absolute Nucleated RBC (0.0-0.012) X10*3/uL Nucleated RBC % (auto) (0.0-0.2) /100WBC Sodium (135-145) mmol/L Potassium (3.3-5.1) mmol/L Chloride (96-108) mmol/L Carbon Dioxide (22-29) mmol/L Anion Gap (12-20) BUN (9-16) mg/dL Creatinine (0.5-1.4) mg/dL Estim Creat Clear Calc Estimated GFR Random Glucose (60-115) mg/dL Calcium (8.4-10.2) mg/dL Magnesium (1.6-2.6) mg/dL Total Bilirubin (0.0-1.0) mg/dL AST (5-31) U/L ALT (0-31) U/L Alkaline Phosphatase (39-117) U/L Troponin I High Sens (<3.5-17.0) ng/L Total Protein (6.5-8.0) g/dL Albumin (3.5-5.0) g/dL Influenza Type A (PCR) NEGATIVE (Negative) Influenza Type B (PCR) NEGATIVE (Negative) RSV RNA Qual (PCR) NEGATIVE (Negative) SARS-CoV-2 RNA (RT-PCR) NEGATIVE (Negative) <Benny Petersen MD - Last Filed: 10/28/22 00:33> Independent Interpretation I performed an independent interpretation of an: EKG <Benny Petersen MD - Last Filed: 10/28/22 00:33> Interpretation: Normal sinus rhythm heart rate 62 beats per minute normal interval normal axis no acute ST changes impression normal EKG <Benny Petersen MD - Last Filed: 10/28/22 00:33> Discharge Plan Discharge Clinical Impression: Essential hypertension <TAVO Bahena - Last Filed: 10/27/22 18:48> Patient Disposition: Home, Self-Care <TAVO Bahena - Last Filed: 10/27/22 18:48> Instructions: Hypertension (ED) <TAVO Bahena - Last Filed: 10/27/22 18:48> Additional Instructions: Decrease salt intake Take your lisinopril/hydrochlorothiazide tablet daily Check blood pressure before taking the medication and before going to bed Blood pressure should be less than 135/85 Do not take the blood pressure medication if blood pressure is less than 130/80 <TAVO Bahena - Last Filed: 10/27/22 18:48> Stand Alone Forms: Work/School Release <TAVO Bahena - Last Filed: 10/27/22 18:48> Interventions: ED Discharge Assessment Last Done: 10/27/22 21:09 <TAVO Bahena - Last Filed: 10/27/22 18:48> Discharge Date/Time: 10/27/22 21:09 <TAVO Bahena - Last Filed: 10/27/22 18:48>
--- NOTE | 2022-10-27 18:48 | ECG_ITS ---
Test Reason : CP Blood Pressure : / mmHG Vent. Rate : 062 BPM Atrial Rate : 062 BPM P-R Int : 132 ms QRS Dur : 088 ms QT Int : 430 ms P-R-T Axes : 007 007 004 degrees QTc Int : 436 ms Normal sinus rhythm Normal ECG When compared with ECG of 03-AUG-2022 15:52, No significant change was found Referred By: Brinda Schulz Electronically Signed By:Perez Noland
[2022-10-27 19:36] LABS: MANUAL DIFF FLAG NO
[2022-10-27 19:40] LABS: Basophils Absolute Auto 0.1 X10*3/uL (0.0-0.2); Basophils Percent Auto 1.2 % (0-2); Eosinophils Absolute Auto 0.1 X10*3/uL (0.0-0.4); Eosinophils Percent Auto 2.2 % (0-4); Hematocrit 30.9 % (37.0-47.0); Hemoglobin 9.5 g/dl (12.0-16.0); Lymphocytes Absolute Auto 1.6 X10*3/uL (1.2-4.9); Mean Corpuscular HGB Conc 30.7 g/dl (31.0-35.0); Mean Corpuscular Hemoglobin 21.8 pg (27.0-33.0); Mean Platelet Volume 10.1 fL (9.4-12.3); Monocytes Absolute Auto 0.4 X10*3/uL (0.1-1.2); Monocytes Percent Auto 8.7 % (2-11); Neutrophils Absolute Auto 2.8 x10*3/uL (2.0-8.3); Neutrophils Percent Auto 55.9 % (45-73); Platelet Count 322 X10*3/uL (160-400); Red Blood Count 4.35 X10*6/uL (4.20-5.50); Red Cell Distribution Width 17.4 % (11.0-16.0)
[2022-10-27 19:54] LABS: Alanine Aminotransferase 14 U/L (0-31); Alkaline Phosphatase 67 U/L (39-117); Anion Gap 15 (12-20); Aspartate Amino Transferase 19 U/L (5-31); Bilirubin Total 0.8 mg/dL (0.0-1.0); Blood Urea Nitrogen 13 mg/dL (9-16); Calcium 9.1 mg/dL (8.4-10.2); Carbon Dioxide 23 mmol/L (22-29); Chloride 104 mmol/L (96-108); Creatinine Clr Calc Pharmacy 98.8; Estimated Glomerular Filt Rate > 60; Glucose Random 121 mg/dL (60-115); Magnesium 2.2 mg/dL (1.6-2.6); Potassium 3.7 mmol/L (3.3-5.1); Sodium 138 mmol/L (135-145); Total Protein 6.9 g/dL (6.5-8.0)
[2022-10-27 20:06] LABS: Troponin-I High Sensitivity < 3.5 ng/L (<3.5-17.0)
[2022-10-27 20:12] VITALS: BP 160/82; PULSE 61; RESP 16; TEMP 36.8; O2SAT 100
[2022-10-27 20:16] LABS: Influenza A PCR NEGATIVE (Negative); Influenza B PCR NEGATIVE (Negative); Resp Syncy Virus RNA Qual PCR NEGATIVE (Negative); SARS COV2 PCR INHOUSE NEGATIVE (Negative)
--- NOTE | 2022-10-27 20:43 | PC.NURSE ---
Pt aox4 resting at the bedside in no apparent distress. Reports no pain at this time. MD at bedside.
--- NOTE | 2022-10-27 21:08 | PC.NURSE ---
Pt aox4. Discharge instructions reviewed wt pt. Pt verbalizes understanding.
== END 2022-10-27 21:09 | disposition home or self-care (01) ==
PROVIDERS: Physician Assistant Medical; Emergency Provider Internal Medicine; PCP Pediatrics
DX: R07.89 Other chest pain (principal); H53.8 Other visual disturbances; I10 Essential (primary) hypertension; Z20.822 Contact with and (suspected) exposure to COVID-19; Z20.828 Contact with and (suspected) exposure to other viral communicable diseases; Z79.899 Other long term (current) drug therapy
CPT/HCPCS: 0241U; 71046; 80053; 83735; 84484; 85025; 93005; 99283; 99284

== ENCOUNTER 2023-03-21 13:16 | Emergency (ER) | payer MEDICAID, SELFPAY ==
[2023-03-21] VITALS (8 sets, daily range): BP systolic 132–161; BP diastolic 62–84; PULSE 51–59; RESP 14–20; TEMP 36.5–37.3; O2SAT 100; BMI 31.1
--- NOTE | ~2023-03-21 | CT_ITS ---
EXAMINATION: CT abdomen pelvis w IV con CLINICAL INFORMATION: Reason for Exam mild GI bleed COMPARISON: No prior CT available for comparison. TECHNIQUE: Multidetector volumetric imaging was performed from the superior aspect of the liver through the pubic symphysis 80 mL of Omnipaque 350 injected Sagittal and coronal reformatted images were obtained on the technologist's workstation. This CT examination was performed using dose optimization techniques as appropriate, variously including the following: *Automated exposure control *Adjustment of mA and/or kV according to patient size (this includes techniques or standardized protocols for targeted exams where dose is matched to indication/reason for exam; i.e. extremities or head) *Use of iterative reconstruction technique DLP: 350 mGy-cm FINDINGS: LOWER THORAX: Included lung bases are clear. HEPATOBILIARY: No focal hepatic lesions. No biliary ductal dilatation. GALLBLADDER: Gallbladder unremarkable. SPLEEN: Spleen is normal in size. PANCREAS: No focal mass or ductal dilatation. STOMACH AND GASTROINTESTINAL TRACT: Postsurgical changes from partial gastric resection. No CT evidence of dehiscence or obstruction. There is no bowel distention or thickening. No CT evidence of contrast pulling to suggest source of GI bleeding. Normal appendix identified. ADRENALS: No adrenal nodules. KIDNEYS/URETERS: No hydronephrosis, stones or solid mass lesions. URINARY BLADDER: Partially decompressed. PELVIC VISCERA: Large heterogeneous uterine mass, roughly measures 6.1 x 5.6 cm possibly uterine fibroids, this could be evaluated with pelvic ultrasound if clinically indicated. PERITONEUM: No free air or fluid. LYMPH NODES: No lymphadenopathy. VASCULAR:Abdominal aorta normal in size, no aneurysm found. BONES, ABDOMINAL WALL AND SOFT TISSUES: Age-appropriate changes of the spine and skeletal system, no destructive osteolytic or osteosclerotic bone lesion found CT/CT abdomen pelvis w IV con IMPRESSION: * No CT evidence of acute intra-abdominal process to explain patient's GI bleeding. * Postsurgical changes from prior partial gastric resection. No CT evidence of dehiscence or obstruction. * Large heterogeneous uterine mass 6.1 cm possibly uterine fibroids, this could be evaluated with pelvic ultrasound if clinically indicated.
--- NOTE | 2023-03-21 13:22 | ED.GIBLEED ---
HPI - GI Bleed General Chief complaint: GI Bleed Stated complaint: bleeding through stool Time Seen by Provider: 03/21/23 15:07 Source: patient Mode of arrival: ambulatory Limitations: no limitations History of Present Illness HPI Narrative: Patient comes in the emergency room complaining of rectal bleeding. Patient states that today, patient had bright red blood in the stool. Patient denies constipation or diarrhea. Patient states that she has history of anemia secondary to menorrhagia. Patient states that she is not menstruating at this time. Patient complaining of shortness of breath and weakness for 2-3 days. Patient states that she feels this way when her hemoglobin is on the lower side. Patient has no significant abdominal pain, occasional cramping. Related Data Allergies Allergy/AdvReac Type Severity Reaction Status Date / Time No Known Allergies Allergy Verified 03/21/23 13:23 Review of Systems Review of Systems: Constitutional : No Weight loss, No Fever, No Chills, No Night Sweats, No Fatigue, No Malaise ENT/Mouth : No Hearing loss, No Ear Pain, No Nasal Congestion, No Sinus Pain, No Hoarseness, No sore throat, No Rhinorrhea, No Swallowing Difficulty Eyes: No Eye Pain, No Swelling, No Redness, No Foreign Body, No Discharge, No Vision Changes Cardiovascular : No Chest Pain, No SOB, No Dyspnea on Exertion, No Orthopnea, No Edema, No Palpitations Respiratory : No Cough, No Sputum, No Wheezing, No Smoke Exposure, No Dyspnea Gastrointestinal : No Nausea, No Vomiting, No Diarrhea, No Constipation, complaining of mild abdominal cramping, complaining of mild GI/rectal bleeding Genitourinary : no irregular bleeding, No Dysuria, No Urinary Frequency, No Hematuria, No Urinary Incontinence, No Urgency, No Flank Pain, No Urinary Flow Changes, No Hesitancy Musculoskeletal : No joint pain, No Myalgias, No Joint Swelling Skin : No Skin Lesions, No rash Neuro : No Weakness, No Numbness, No Paresthesias, No Loss of Consciousness, No Dizziness, No Headache Psych : No Anxiety/Panic, No Depression, No SI/HI/AH/VH, No Social Issues, Heme/Lymph: No Bruising, No Bleeding,No Lymphadenopathy Endocrine : No Polyuria, No Polydipsia, No Temperature Intolerance PMFSH Past Medical History Medical History (Updated 03/21/23 @ 20:06 by Shazia Norton MD) Diabetes Hypertension Menorrhagia Social History Social History Use of substances other than those prescribed or required for medical reasons: No Advance Directives: No Advance Directives Information Provided: No Physical Exam Vital Signs: Vital Signs: Last Vital Signs Temp 99.1 F 03/21/23 19:15 Pulse 58 03/21/23 19:15 Resp 20 03/21/23 19:15 BP 132/72 03/21/23 19:15 Pulse Ox 100 03/21/23 16:56 O2 Del Method Room Air 03/21/23 16:56 BMI result Body Mass Index 31.1 Const: Other: Appearance: Alert. Oriented X3. No acute distress. Eyes: Pupils equal, round and reactive to light. ENT: Pharynx normal. Neck: Normal inspection. Neck supple. No lymph nodes noted. No crepitus CVS: Normal heart rate and rhythm. Pulses normal. Normal S1 and S2 Respiratory: No respiratory distress. Breath sounds normal. No Wheezing. No rales Abdomen: Soft and nontender. No rigidity. No distention. Digital rectal exam shows brown stool Skin: Skin warm and dry. Mild diffuse pallor, Normal skin turgor. Extremities: No lower extremity edema. No Lacerations. No Rash Neuro: Oriented X 3. No motor deficit. No sensory deficit. Moving all extremities. No slurred speech. CN 2 through 12 grossly intact Psych: calm, cooperative, normal affect Course Course Course Narrative: RME: 47yo F w/PMHx menorrhagia requiring transfusion, DM, HTN, c/o fatigue, SOB x2 days and brbpr x today. denies fever, abdominal pain, N/V or taking AC. denies melena, vaginal bleeding VSS, NAD, nontoxic appearing Labs, occult stool, & T&S ordered Full HPI, ROS and PE to be performed by primary ED provider. Medications Administered Discontinued Medications Generic Name Dose Route Start Last Admin Trade Name Freq PRN Reason Stop Dose Admin Iohexol 100 ml 03/21/23 16:40 03/21/23 16:41 Iohexol 350 Mg/Ml 100 Ml Infus..Btl IV 03/21/23 16:41 85 ml ONCE ONE Administration Medical Decision Making Medical Decision Making MDM Narrative: -I reviewed patient's labs, hemoglobin is 7.7. Patient is symptomatic, discussed with the patient that she would benefit from a transfusion. Patient agreeable. Patient states that she is aware of risks versus benefits and would like to proceed with the blood transfusion. Admission being considered. We will reassess the patient after the 1st unit of blood transfusion -occult stool test negative -my interpretation of CT scan of the abdomen: There is a uterine mass present, likely fibroid -I discussed the CT scan findings with the patient, also, uterine fibroids are likely the cause of patient's menorrhagia. To patient's knowledge, this is the 1st time that she hears that she has fibroids. Patient states that she has an OB Gyne appointment pending for this week -patient received 1 unit of packed red blood cells. Patient tolerated well the transfusion. Patient then walked around the emergency room, patient states she feels completely back to baseline, no shortness of breath, no fatigue. -patient ready for discharge. Differential Diagnosis Differential Diagnoses: The differential diagnosis associated with the presentation includes (Menorrhagia, iron deficiency anemia, upper GI bleed, lower GI bleed, hemorrhoids) Admission/Observation Consideration of admission/observation: Escalation of care including admission/observation considered Lab Data MDM Lab Attestation statement: I reviewed the patient's lab results. 03/21/23 13:38 03/21/23 13:38 Labs: Lab Results 03/21/23 03/21/23 03/21/23 Range/Units 13:38 13:38 13:38 WBC 5.0 (4.8-10.8) X10*3/uL RBC 4.42 (4.20-5.50) X10*6/uL Hgb 7.7 L (12.0-16.0) g/dl Hct 27.1 L (37.0-47.0) % MCV 61.3 L (80.0-98.0) fL MCH 17.4 L (27.0-33.0) pg MCHC 28.4 L (31.0-35.0) g/dl RDW 19.7 H (11.0-16.0) % Plt Count 369 (160-400) X10*3/uL MPV 9.6 (9.4-12.3) fL Immature Gran % (Auto) 0.2 (0.0-0.4) % Neut % (Auto) 58.0 (45-73) % Lymph % (Auto) 27.7 (20-40) % [place]ock % (Auto) 11.3 H (2-11) % Eos % (Auto) 1.6 (0-4) % Baso % (Auto) 1.2 (0-2) % Lymph # (Auto) 1.4 (1.2-4.9) X10*3/uL [place] # (Auto) 0.6 (0.1-1.2) X10*3/uL Eos # (Auto) 0.1 (0.0-0.4) X10*3/uL Baso # (Auto) 0.1 (0.0-0.2) X10*3/uL Abs Immat Gran (auto) 0.01 (0.00-0.03) X10*3/uL Absolute Neuts (auto) 2.9 (2.0-8.3) x10*3/uL Absolute Nucleated RBC 0.000 (0.0-0.012) X10*3/uL Nucleated RBC % (auto) 0.0 (0.0-0.2) /100WBC PT 10.9 (10.0-13.1) SEC INR 1.0 (0.9-1.1) Sodium 137 (135-145) mmol/L Potassium 4.2 (3.3-5.1) mmol/L Chloride 106 (96-108) mmol/L Carbon Dioxide 28 (22-29) mmol/L Anion Gap 7 L (12-20) BUN 13 (9-16) mg/dL Creatinine 0.70 (0.5-1.4) mg/dL Estim Creat Clear Calc 96.5 Estimated GFR > 60 Random Glucose 93 (60-115) mg/dL Calcium 9.2 (8.4-10.2) mg/dL Magnesium 2.1 (1.6-2.6) mg/dL Total Bilirubin 1.4 H (0.0-1.0) mg/dL Direct Bilirubin 0.3 (0.0-0.5) mg/dL AST 18 (5-31) U/L ALT 16 (0-31) U/L Alkaline Phosphatase 55 (39-117) U/L Total Protein 6.8 (6.5-8.0) g/dL Albumin 3.7 (3.5-5.0) g/dL Lipase 18 (8-78) U/L Stool Occult Blood (NEGATIVE) Blood Type Antibody Screen Crossmatch 03/21/23 03/21/23 Range/Units 13:38 15:37 WBC (4.8-10.8) X10*3/uL RBC (4.20-5.50) X10*6/uL Hgb (12.0-16.0) g/dl Hct (37.0-47.0) % MCV (80.0-98.0) fL MCH (27.0-33.0) pg MCHC (31.0-35.0) g/dl RDW (11.0-16.0) % Plt Count (160-400) X10*3/uL MPV (9.4-12.3) fL Immature Gran % (Auto) (0.0-0.4) % Neut % (Auto) (45-73) % Lymph % (Auto) (20-40) % [place] % (Auto) (2-11) % Eos % (Auto) (0-4) % Baso % (Auto) (0-2) % Lymph # (Auto) (1.2-4.9) X10*3/uL [place] # (Auto) (0.1-1.2) X10*3/uL Eos # (Auto) (0.0-0.4) X10*3/uL Baso # (Auto) (0.0-0.2) X10*3/uL Abs Immat Gran (auto) (0.00-0.03) X10*3/uL Absolute Neuts (auto) (2.0-8.3) x10*3/uL Absolute Nucleated RBC (0.0-0.012) X10*3/uL Nucleated RBC % (auto) (0.0-0.2) /100WBC PT (10.0-13.1) SEC INR (0.9-1.1) Sodium (135-145) mmol/L Potassium (3.3-5.1) mmol/L Chloride (96-108) mmol/L Carbon Dioxide (22-29) mmol/L Anion Gap (12-20) BUN (9-16) mg/dL Creatinine (0.5-1.4) mg/dL Estim Creat Clear Calc Estimated GFR Random Glucose (60-115) mg/dL Calcium (8.4-10.2) mg/dL Magnesium (1.6-2.6) mg/dL Total Bilirubin (0.0-1.0) mg/dL Direct Bilirubin (0.0-0.5) mg/dL AST (5-31) U/L ALT (0-31) U/L Alkaline Phosphatase (39-117) U/L Total Protein (6.5-8.0) g/dL Albumin (3.5-5.0) g/dL Lipase (8-78) U/L Stool Occult Blood NEGATIVE (NEGATIVE) Blood Type O Positive Antibody Screen NEGATIVE Crossmatch See Detail Radiology Impression Discussion of test interpretation with radiology: I have reviewed the radiologist's reading. Radiologist Impression: FINDINGS: LOWER THORAX: Included lung bases are clear. HEPATOBILIARY: No focal hepatic lesions. No biliary ductal dilatation. GALLBLADDER: Gallbladder unremarkable. SPLEEN: Spleen is normal in size. PANCREAS: No focal mass or ductal dilatation. STOMACH AND GASTROINTESTINAL TRACT: Postsurgical changes from partial gastric resection. No CT evidence of dehiscence or obstruction. There is no bowel distention or thickening. No CT evidence of contrast pulling to suggest source of GI bleeding. Normal appendix identified. ADRENALS: No adrenal nodules. KIDNEYS/URETERS: No hydronephrosis, stones or solid mass lesions. URINARY BLADDER: Partially decompressed. PELVIC VISCERA: Large heterogeneous uterine mass, roughly measures 6.1 x 5.6 cm possibly uterine fibroids, this could be evaluated with pelvic ultrasound if clinically indicated. PERITONEUM: No free air or fluid. LYMPH NODES: No lymphadenopathy. VASCULAR:Abdominal aorta normal in size, no aneurysm found. BONES, ABDOMINAL WALL AND SOFT TISSUES: Age-appropriate changes of the spine and skeletal system, no destructive osteolytic or osteosclerotic bone lesion found CT/CT abdomen pelvis w IV con IMPRESSION: ? *? No CT evidence of acute intra-abdominal process to explain patient's GI bleeding. ? *? Postsurgical changes from prior partial gastric resection. No CT evidence of dehiscence or obstruction. ? *? Large heterogeneous uterine mass 6.1 cm possibly uterine fibroids, this could be evaluated with pelvic ultrasound if clinically indicated. Critical Care Time Critical Care Time Critical Care Time: Yes Total Critical Care Time: 60 Attestation: I have personally provided critical care time. Time includes review of lab data, radiology results, discussion with consultants, and monitoring for potential decompensation. Intervention performed as documented. Discharge Plan Discharge Clinical Impression: Anemia, Uterine fibroid Patient Disposition: Home, Self-Care Instructions: Anemia (ED) Additional Instructions: Continue taking your iron supplements. Please follow-up with your community center coordinator and primary care physician tomorrow. If you have any worsening or new symptoms, please return to the emergency room or call 911
--- NOTE | 2023-03-21 13:25 | ECG_ITS ---
Test Reason : sob Blood Pressure : / mmHG Vent. Rate : 063 BPM Atrial Rate : 063 BPM P-R Int : 136 ms QRS Dur : 088 ms QT Int : 428 ms P-R-T Axes : 016 016 005 degrees QTc Int : 437 ms Normal sinus rhythm with sinus arrhythmia Normal ECG When compared with ECG of 27-OCT-2022 19:13, No significant change was found Referred By: Zulema Rosado Electronically Signed By:Perez Noland
[2023-03-21 13:47] LABS: MANUAL DIFF FLAG NO
[2023-03-21 13:51] LABS: Basophils Absolute Auto 0.1 X10*3/uL (0.0-0.2); Basophils Percent Auto 1.2 % (0-2); Eosinophils Absolute Auto 0.1 X10*3/uL (0.0-0.4); Eosinophils Percent Auto 1.6 % (0-4); Hematocrit 27.1 % (37.0-47.0); Hemoglobin 7.7 g/dl (12.0-16.0); Imm Gran Abs Auto 0.01 X10*3/uL (0.00-0.03); Imm Gran Pct Auto 0.2 % (0.0-0.4); Lymphocytes Absolute Auto 1.4 X10*3/uL (1.2-4.9); Lymphocytes Percent Auto 27.7 % (20-40); Mean Corpuscular HGB Conc 28.4 g/dl (31.0-35.0); Mean Corpuscular Hemoglobin 17.4 pg (27.0-33.0); Mean Platelet Volume 9.6 fL (9.4-12.3); Monocytes Absolute Auto 0.6 X10*3/uL (0.1-1.2); Monocytes Percent Auto 11.3 % (2-11); Neutrophils Absolute Auto 2.9 x10*3/uL (2.0-8.3); Platelet Count 369 X10*3/uL (160-400); Red Blood Count 4.42 X10*6/uL (4.20-5.50); Red Cell Distribution Width 19.7 % (11.0-16.0)
[2023-03-21 13:52] LABS: Mean Corpuscular Volume 61.3 fL (80.0-98.0)
[2023-03-21 13:53] LABS: Prothrombin Time 10.9 SEC (10.0-13.1)
[2023-03-21 14:11] LABS: Alanine Aminotransferase 16 U/L (0-31); Albumin Level 3.7 g/dL (3.5-5.0); Alkaline Phosphatase 55 U/L (39-117); Anion Gap 7 (12-20); Aspartate Amino Transferase 18 U/L (5-31); Bilirubin Direct 0.3 mg/dL (0.0-0.5); Bilirubin Total 1.4 mg/dL (0.0-1.0); Blood Urea Nitrogen 13 mg/dL (9-16); Calcium 9.2 mg/dL (8.4-10.2); Carbon Dioxide 28 mmol/L (22-29); Chloride 106 mmol/L (96-108); Creatinine Clr Calc Pharmacy 96.5; Estimated Glomerular Filt Rate > 60; Glucose Random 93 mg/dL (60-115); Lipase 18 U/L (8-78); Magnesium 2.1 mg/dL (1.6-2.6); Potassium 4.2 mmol/L (3.3-5.1); Sodium 137 mmol/L (135-145); Total Protein 6.8 g/dL (6.5-8.0)
[2023-03-21 15:45] LABS: OBS Int Ctl Valid YES; OBS1 NEGATIVE (NEGATIVE)
[2023-03-21] MEDS: iohexoL 350 MG/ML 100 ML INFUS..BTL IV (16:41)
--- NOTE | 2023-03-21 17:24 | PC.NURSE ---
pre transfusion vs and assessment appropriate to begin transfusion. blood verified by 2 RNs, blood transfusing at this time, pt tolerating well. vss. will continue to observe.
--- NOTE | 2023-03-21 17:43 | PC.NURSE ---
pt tolerating transfusion. no c/o adverse reaction, non observed. pt resting quietly, no apparent distress. pt's daughter at her bedside.
--- NOTE | 2023-03-21 19:59 | PC.NURSE ---
gait steady, condition improved, denies dizziness/dyspnea. skin color norm/warm/dry. will f/u with PCP.
== END 2023-03-21 20:16 | disposition home or self-care (01) ==
PROVIDERS: Physician Assistant; Emergency Provider Emergency Medicine; PCP Pediatrics
DX: D64.9 Anemia, unspecified (principal); D25.9 Leiomyoma of uterus, unspecified; K62.5 Hemorrhage of anus and rectum; R06.02 Shortness of breath; R53.1 Weakness; Z79.899 Other long term (current) drug therapy
CPT/HCPCS: 36415; 36430; 74177; 80048; 80076; 82272; 83690; 83735; 85025; 85610; 86850; 86900; 86901; 86923; 93005; 99285; P9016; Q9967

== ENCOUNTER 2023-03-22 10:36 | Outpatient (REF) | payer MEDICAID, SELFPAY ==
[2023-03-22 13:07] LABS: Hemoglobin 9.2 g/dl (12.0-16.0); Mean Corpuscular HGB Conc 28.8 g/dl (31.0-35.0); Mean Corpuscular Hemoglobin 18.4 pg (27.0-33.0); Mean Platelet Volume 10.4 fL (9.4-12.3); Platelet Count 382 X10*3/uL (160-400); Red Blood Count 4.99 X10*6/uL (4.20-5.50); Red Cell Distribution Width 23.1 % (11.0-16.0); White Blood Count 4.7 X10*3/uL (4.8-10.8)
[2023-03-22 13:08] LABS: Mean Corpuscular Volume 64.1 fL (80.0-98.0)
[2023-03-22 13:37] LABS: HCG Quantitative < 2 mIU/mL
[2023-03-22 13:49] LABS: TSH reflex Free T4 0.62 uIU/mL (0.32-4.0)
[2023-03-23 02:45] LABS: CT PCR NOT DETECTED (Not Detect.); NG PCR NOT DETECTED (Not Detect.)
[2023-03-24 04:39] LABS: Prolactin 6.8 ng/mL
== END 2023-03-22 10:37 | disposition home or self-care (01) ==
LOC: HO.LAB 10:36
PROVIDERS: PCP Pediatrics; Visit Provider Obstetrics & Gynecology
DX: Z30.430 Encounter for insertion of intrauterine contraceptive device (principal); N93.9 Abnormal uterine and vaginal bleeding, unspecified
CPT/HCPCS: 0353U; 36415; 58100; 58300; 81025; 84146; 84443; 84702; 85027; 99202; J7298

== ENCOUNTER 2023-03-22 11:53 | Outpatient (REF) | payer MEDICAID, SELFPAY ==
[2023-03-29 07:09] LABS: HPV mRNA E6/E7 rflx Not Detected (Not Detected)
== END 2023-03-22 11:54 | disposition home or self-care (01) ==
LOC: HO.LNP 11:53
PROVIDERS: Visit Provider Obstetrics & Gynecology
DX: Z12.4 Encounter for screening for malignant neoplasm of cervix (principal); Z11.51 Encounter for screening for human papillomavirus (HPV); N93.9 Abnormal uterine and vaginal bleeding, unspecified
CPT/HCPCS: 87624; 88142; 88305

== ENCOUNTER 2023-03-26 15:33 | Outpatient (REF) | payer MEDICAID, SELFPAY | END 2023-03-26 15:34 | disposition home or self-care (01) | LOC: HO.US 15:33 | PROVIDERS: PCP Pediatrics; Visit Provider Obstetrics & Gynecology | DX: N93.9 Abnormal uterine and vaginal bleeding, unspecified (principal) | CPT/HCPCS: 76830; 76856 ==

== ENCOUNTER 2023-04-11 13:16 | Outpatient (AMB) | payer MEDICAID, SELFPAY ==
[2023-04-11 13:17] VITALS: BP 134/84; BMI 30.7
--- NOTE | 2023-04-11 13:17 | A.OFFVIS_ITS ---
Intake Vital Signs 04/11/23 13:17 Height 5 ft 2 in Weight 168 lb BMI 30.7 BP 134/84 Blood Pressure Location Lt brachial Position Sitting Intake Visit Reasons: u/s results and pre op Allergies No Known Allergies Allergy (Verified 04/11/23 13:19) Is last menstrual period known: Yes Last menstrual period: 04/04/23 HPI HPI Comments History of Present Illness Details The patient is presenting for follow-up to discuss the results of her abnormal uterine bleeding workup , the patient was seen at where endometrial biopsy was taken and Mirena IUD inserted because of heavy bleeding . The following workup was done.: H&H on 03/22/2023 was 9.2/32 TSH, hCG, prolactin, GC and chlamydia were negative. Endometrial biopsy pathology showed the following: -Focal endometrial hyperplasia without atypia, and rare squamous morula (see comment). -Fragments of polyps, and benign proliferative endometrium; no atypia or car cinoma. Comment:? Squamous morulae may be seen in hyperplasia, with and without atypia, and in endometrial neoplasia.? Follow-up is warranted. Co testing was done still pending Mammogram scheduled on 04/20/2020 Pelvic ultrasound showed the following: Uterus: The uterus is anteverted and measures 11.6 x 1.5 x 2.2 cm. The double wall endometrial thickness is 7 mm. An IUD appears in normal position. There are multiple uterine fibroids. 5.8 x 5.7 x 5.2 cm left subserosal fibroid impinges on the endometrial stripe. 3.8 x 3.7 x 4.4 cm subserosal fibroid is seen on the left. 2.4 x 1.9 x 2.0 cm subserosal left fundal fibroid is also noted. Adnexa: Both ovaries are visualized. There is normal color flow to the adnexa. There is no ovarian torsion. There is no pelvic ascites or fluid collection. Right ovary measures 2.4 x 1.5 x 2.2 cm. Volume of 4.2 mL. The right ovary is normal in appearance Left ovary measures 3.7 x 2.2 x 4.6 cm. Volume of 19.6 mL. The left ovary contains a 3.0 x 1.8 x 2.4 cm simple cyst. This is most likely physiologic in origin. No imaging follow-up is recommended. FOR[facility]LY [facility], [facility] Medical History Diabetes Hypertension Menorrhagia Surgical History History of gastric bypass Family History Sister Uterine cancer Social History Alcohol intake: current Alcohol intake frequency: holidays/special occasions only Patient Tobacco Use Status: Never used Tobacco Female Reproductive History Menstrual Age of Menarche: 12 Date of last menstrual period: 04/04/23 Review of Systems Const All systems reviewed & are unremarkable except as noted in HPI and below Reports as per HPI and Reports no additional complaints GI Reports no additional complaints Reports no additional complaints Physical Exam Vital Signs: Last Vital Signs BP 134/84 04/11/23 13:17 BMI result Body Mass Index 30.7 Assessment & Plan Assessment & Plan (1) Abnormal uterine bleeding (AUB): Comment: Anemia and status post multiple blood transfusions Endometrial polyp on pathology Simple Endometrial hyperplasia without atypia Squamous morules which could be associated with EIN and/or endometrial malignancy Multiple myomas Code(s): N93.9 - Abnormal uterine and vaginal bleeding, unspecified Plan: Discussed with the patient the finding on pathology showing simple endometrial hyperplasia without atypia with squamous morules which could be associated with symmetry hyperplasia and/or malignancy and features of an endometrial polyp, multiple myomas. Discussed the patient different options of the treatment including including staying on Mirena IUD and repeat endometrial biopsy periodically, versus hysterectomy. All pros and cons, risks and benefits of each were discussed with the patient, the patient would like to proceed with hysterectomy. Discussed with the patient the different types of hysterectomies including, vaginal, laparoscopic assisted vaginal, robotic assisted laparoscopic,& abdominal with BSO. All pros, cons, r/b of each approach were discussed the patient including evidence that morbidity is less and recovery is shorter with minimally invasive approaches to hysterectomy. Discussed with the patient the lack of Gyne Onc service on staff and minimally invasive pizza baker specialist at [facility]. The patient would like to be referred to a tertiary care center. Will refer to [facility] OBGYN Coding Level of Care Code Est Pt Level 3 (55603) Diagnoses Abnormal uterine bleeding (AUB) N93.9
== END 2023-04-11 15:52 | disposition home or self-care (01) ==
LOC: HO.HWS 13:16
PROVIDERS: PCP Pediatrics; Visit Provider Obstetrics & Gynecology
DX: N93.9 Abnormal uterine and vaginal bleeding, unspecified (principal)
CPT/HCPCS: 99213

== ENCOUNTER → 2023-04-11 13:16 | Outpatient (BNVA) | payer MEDICAID, SELFPAY | PROVIDERS: PCP Pediatrics; Visit Provider Obstetrics & Gynecology | DX: N93.9 Abnormal uterine and vaginal bleeding, unspecified (principal) | CPT/HCPCS: 99212 ==

== ENCOUNTER 2023-07-23 23:16 | Emergency (ER) | payer MEDICAID, SELFPAY ==
--- NOTE | 2023-07-23 23:23 | ECG_ITS ---
Test Reason : CHESTPAIN Blood Pressure : / mmHG Vent. Rate : 055 BPM Atrial Rate : 055 BPM P-R Int : 128 ms QRS Dur : 090 ms QT Int : 460 ms P-R-T Axes : 006 043 021 degrees QTc Int : 440 ms Sinus bradycardia Otherwise normal ECG When compared with ECG of 21-MAR-2023 13:27, No significant change was found Referred By: Generic ED Physician Electronically Signed By:MEAGAN ADAMS MD
[2023-07-23 23:24] VITALS: BP 189/89; PULSE 57; RESP 16; TEMP 36.9; O2SAT 97; BMI 33.8
[2023-07-23 23:49] LABS: MANUAL DIFF FLAG NO
[2023-07-23 23:51] LABS: Basophils Absolute Auto 0.1 X10*3/uL (0.0-0.2); Eosinophils Absolute Auto 0.2 X10*3/uL (0.0-0.4); Hematocrit 36.1 % (37.0-47.0); Hemoglobin 11.4 g/dl (12.0-16.0); Imm Gran Abs Auto 0.01 X10*3/uL (0.00-0.03); Imm Gran Pct Auto 0.2 % (0.0-0.4); Lymphocytes Absolute Auto 1.8 X10*3/uL (1.2-4.9); Lymphocytes Percent Auto 30.4 % (20-40); Mean Corpuscular HGB Conc 31.6 g/dl (31.0-35.0); Mean Corpuscular Hemoglobin 23.9 pg (27.0-33.0); Mean Corpuscular Volume 75.8 fL (80.0-98.0); Mean Platelet Volume 9.6 fL (9.4-12.3); Monocytes Absolute Auto 0.6 X10*3/uL (0.1-1.2); Monocytes Percent Auto 9.6 % (2-11); Neutrophils Absolute Auto 3.3 x10*3/uL (2.0-8.3); Neutrophils Percent Auto 55.8 % (45-73); Platelet Count 330 X10*3/uL (160-400); Red Blood Count 4.76 X10*6/uL (4.20-5.50); Red Cell Distribution Width 18.8 % (11.0-16.0)
[2023-07-24 00:05] VITALS: PULSE 57
[2023-07-24 00:08] LABS: Alanine Aminotransferase 19 U/L (0-31); Albumin Level 4.1 g/dL (3.5-5.0); Alkaline Phosphatase 73 U/L (39-117); Anion Gap 15 (12-20); Aspartate Amino Transferase 20 U/L (5-31); Bilirubin Total 0.8 mg/dL (0.0-1.0); Blood Urea Nitrogen 12 mg/dL (9-16); Calcium 9.4 mg/dL (8.4-10.2); Carbon Dioxide 27 mmol/L (22-29); Chloride 103 mmol/L (96-108); Creatinine Clr Calc Pharmacy 89.3; Estimated Glomerular Filt Rate > 60; Glucose Random 97 mg/dL (60-115); Potassium 3.5 mmol/L (3.3-5.1); Sodium 141 mmol/L (135-145); Total Protein 7.6 g/dL (6.5-8.0)
[2023-07-24 00:09] VITALS: BP 177/82; PULSE 56; RESP 16; O2SAT 98
--- NOTE | 2023-07-24 00:10 | ED_ITS ---
HPI - Chest Pain General Chief Complaint: Chest Pain Stated Complaint: High Blood Pressure/Chest pain/Headache/Back pain Time Seen by Provider: 07/24/23 00:08 Source: patient Mode of arrival: ambulatory Limitations: no limitations History of Present Illness HPI narrative: 47 yo female with hx of HTN, pre-diabetes but was coming off of medications after gastric sleeve a couple of years ago - she used to take lisinopril and HCTZ. She is supposed to still be on HCTZ but not compliant. Today felt off like pressure was up, dizzy, left sided chest pain that started this afternoon while at rest - her BP was 188/90 - she took her HCTZ took a cold shower drank some cold water but nothing helped so she came to the ED. MD complaint: chest discomfort and other Onset (ago): hour(s) (several) Timing of current episode: other (improved) Prior episodes: Yes Onset: during rest Pain location: left chest Pain radiation: none Severity: mild Quality: aching Relieving factors: nothing Exacerbating factors: nothing Context: other (elevated BP) Associated symptoms: other (dizziness, headaches) Treatment prior to arrival: other (she did take her HCTZ tonight) Related Data Home Medications Medication Instructions Recorded Confirmed hydrochlorothiazide 25 mg tablet 25 mg PO DAILY 04/11/23 levonorgestrel 21 mcg/24 hours (8 intrauterine 04/11/23 yrs) 52 mg intrauterine device (Mirena) Previous Rx's Medication Instructions Recorded lisinopril 10 1 tab PO DAILY #30 tabs 07/24/23 mg-hydrochlorothiazide 12.5 mg tablet Allergies Allergy/AdvReac Type Severity Reaction Status Date / Time No Known Allergies Allergy Verified 04/11/23 13:19 Review of Systems 2 Review of Systems: Constitutional : No Fever, No Chills, No Fatigue ENT/Mouth : No sore throat, No Rhinorrhea Eyes: No Eye Pain, No Swelling, No Redness Cardiovascular : pos Chest Pain, No SOB, No Dyspnea on Exertion Respiratory : No Cough, No Sputum Gastrointestinal : No Nausea, No Vomiting, No Diarrhea, No abdominal Pain Genitourinary : No Dysuria, No Urinary Frequency, No Hematuria, Musculoskeletal : No joint pain, No Myalgias, No Joint Swelling Skin : No Skin Lesions, No rash Neuro : No Weakness, No Numbness, pos Dizziness, positive Headache Psych : No Anxiety/Panic, No Depression Heme/Lymph: No Bruising, No Bleeding,No Lymphadenopathy Endocrine : No Polyuria, No Polydipsia All other systems reviewed and are negative [facility] Past Medical History Attestation statement: The following information was validated with the patient. Medical History Diabetes Hypertension Menorrhagia Surgical History History of gastric bypass Family History Family History Sister Uterine cancer Social History Social History Alcohol intake: current Alcohol intake frequency: holidays/special occasions only Patient Tobacco Use Status: Never used Tobacco Advance Directives: No Advance Directives Information Provided: Yes Patient : No Physical Exam 2 Vital Signs: Vital Signs: Last Vital Signs Temp 98.4 F 07/23/23 23:24 Pulse 59 07/24/23 01:23 Resp 14 07/24/23 01:23 BP 165/84 H 07/24/23 01:23 Pulse Ox 98 07/24/23 00:09 O2 Del Method Room Air 07/24/23 00:09 BMI result Body Mass Index 33.8 Appearance: Alert. Oriented X3. No acute distress. Eyes: Pupils equal, round and reactive to light. ENT: Pharynx normal. Neck: Normal inspection. Neck supple. CVS: Normal heart rate and rhythm. Pulses normal. Respiratory: No respiratory distress. Breath sounds normal. Abdomen: Soft and nontender. Skin: Skin warm and dry. Normal skin color. Normal skin turgor. Extremities: No lower extremity edema. No calf ttp Neuro: Oriented X 3. No motor deficit. No sensory deficit. Course Course Course Narrative: BP improved can go home on new medication Medications Administered Discontinued Medications Generic Name Dose Route Start Last Admin Trade Name Freq PRN Reason Stop Dose Admin Lisinopril 10 mg 07/24/23 00:41 07/24/23 00:50 Lisinopril 10 Mg Tablet PO 07/24/23 00:42 10 mg ONCE ONE Administration Protocol Medical Decision Making Medical Decision Making MDM Narrative: 47 yo female with hx of HTN, pre-diabetes, coming off of medications in setting of weight loss surgery but still supposed to take HCTZ not compliant with medications at this time given complaints of chest pain EKG and trop ordered x 1 as pain > 6 hours - repeat BP and she is not compliant with her medications will add on 10mg lisinopril and reassess. Her symptoms are atypical no tachycardia or hypoxia/signs of DVT to suggest DVT, she has no radiation to back to suggest dissection she is not toxic and has normal neuro exam I do not suspect end organ damage Differential Diagnosis Differential Diagnoses: The differential diagnosis associated with the presentation includes atypical chest pain, uncontrolled HTN Admission/Observation Consideration of admission/observation: Escalation of care including admission/observation considered can be managed as outpatient with oral BP medications Lab Data MDM Lab Attestation statement: I reviewed the patient's lab results. 07/23/23 23:44 07/23/23 23:44 Labs: Lab Results 07/23/23 Range/Units 23:44 WBC 6.0 (4.8-10.8) X10*3/uL RBC 4.76 (4.20-5.50) X10*6/uL Hgb 11.4 L D (12.0-16.0) g/dl Hct 36.1 L (37.0-47.0) % MCV 75.8 L (80.0-98.0) fL MCH 23.9 L (27.0-33.0) pg MCHC 31.6 (31.0-35.0) g/dl RDW 18.8 H (11.0-16.0) % Plt Count 330 (160-400) X10*3/uL MPV 9.6 (9.4-12.3) fL Immature Gran % (Auto) 0.2 (0.0-0.4) % Neut % (Auto) 55.8 (45-73) % Lymph % (Auto) 30.4 (20-40) % Saunders % (Auto) 9.6 (2-11) % Eos % (Auto) 3.0 (0-4) % Baso % (Auto) 1.0 (0-2) % Lymph # (Auto) 1.8 (1.2-4.9) X10*3/uL Saunders # (Auto) 0.6 (0.1-1.2) X10*3/uL Eos # (Auto) 0.2 (0.0-0.4) X10*3/uL Baso # (Auto) 0.1 (0.0-0.2) X10*3/uL Abs Immat Gran (auto) 0.01 (0.00-0.03) X10*3/uL Absolute Neuts (auto) 3.3 (2.0-8.3) x10*3/uL Absolute Nucleated RBC 0.000 (0.0-0.012) X10*3/uL Nucleated RBC % (auto) 0.0 (0.0-0.2) /100WBC Sodium 141 (135-145) mmol/L Potassium 3.5 (3.3-5.1) mmol/L Chloride 103 (96-108) mmol/L Carbon Dioxide 27 (22-29) mmol/L Anion Gap 15 (12-20) BUN 12 (9-16) mg/dL Creatinine 0.79 (0.5-1.4) mg/dL Estim Creat Clear Calc 89.3 Estimated GFR > 60 Random Glucose 97 (60-115) mg/dL Calcium 9.4 (8.4-10.2) mg/dL Total Bilirubin 0.8 (0.0-1.0) mg/dL AST 20 (5-31) U/L ALT 19 (0-31) U/L Alkaline Phosphatase 73 (39-117) U/L Troponin I High Sens < 2.7 (<3.5-17.0) ng/L Total Protein 7.6 (6.5-8.0) g/dL Albumin 4.1 (3.5-5.0) g/dL Independent Interpretation I performed an independent interpretation of an: EKG Interpretation: Rate: 55 Rhythm: sinus bradycardia [place]: normal Normal P waves. Normal ZIA. Normal QRS complex. ST T wave : no URSZULA, inverted t wave in V1 qTC: normal prior studies: no acute ischemia The study has been interpreted contemporaneously by me. . Independent Historian Clinical information obtained from an independent historian. History obtained from or confirmed by: Spouse External Record Review External record reviewed: Outpatient record Prescription Management I considered prescription management with: Other Discharge Plan Discharge Clinical Impression: Atypical chest pain, Hypertension, uncontrolled Patient Disposition: Home, Self-Care Instructions: Chest Pain (ED), Hypertension (ED) Additional Instructions: hold blood pressure if pressure below 100. return for dizziness, chest pain, loss of vision, numbness, weakness or any other concerns. lisinopril can cause swelling of the lips please monitor. it can also affect your potassium so your doctor will need to monitor. try the new combination pill hold your old HCTZ 25mg follow up with your doctor Prescriptions: New lisinopril-hydrochlorothiazide 10-12.5 mg tablet 1 tab PO DAILY Qty: 30 1RF No Action hydrochlorothiazide 25 mg tablet 25 mg PO DAILY Mirena 21 mcg/24 hours (8 yrs) 52 mg intrauterine device intrauterine
[2023-07-24 00:18] LABS: Troponin-I High Sensitivity < 2.7 ng/L (<3.5-17.0)
[2023-07-24 00:40] VITALS: BP 196/81; PULSE 58
[2023-07-24] MEDS: lisinopriL 10 MG TABLET PO (00:50)
[2023-07-24 01:23] VITALS: BP 165/84; PULSE 59; RESP 14
== END 2023-07-24 01:40 | disposition home or self-care (01) ==
PROVIDERS: Emergency Provider Emergency Medicine; PCP Pediatrics
DX: R07.89 Other chest pain (principal); I10 Essential (primary) hypertension; R51.9 Headache, unspecified; M54.50 Low back pain, unspecified; R42 Dizziness and giddiness; Z79.899 Other long term (current) drug therapy
CPT/HCPCS: 36415; 80053; 84484; 85025; 93005; 99283; 99285

== ENCOUNTER 2025-01-15 10:12 | Outpatient (REF) | payer MEDICAID, SELFPAY ==
--- OUTSIDE RECORDS SUMMARY | 2025-01-15 11:57 | XMS_ITS | Encounter Summary ---
Author Organization [employer] Address [address] [place] [address] Care Team Providers Care Grades 9 Thru 12 Visiting Teacher Name Role Phone Itzel Ashford MD Primary Care Provider [phone] Encounter Details Date Type Department Care Team (Latest Contact Info) Description 01/15/2025 Travel Social History Tobacco Use Types Packs/Day Years Used Date Smoking Tobacco: Never Assessed Depression Answer Date Recorded Patient Health Questionnaire-9 Score 6 01/15/2025 Patient Health Questionnaire-9 Score 6 01/15/2025 Last PHQ-9: Questionnaire Data Not on file 0 01/15/2025 Housing Stability Answer Date Recorded What is your housing situation today? I have silvano stapleton 01/15/[address] you li ve. Do you have problems with any of the following? None of the above 01/15/2025 Food Insecurity Answer Date Recorded Within the past 12 months, y ou worried that your food would run out before you got money to buy more: Never True 01/15/2025 Within the past 12 months,th e food you bought just didn't last and you didn't have enough money to get more: Never True Transportation Answer Date Recorded In the past 12 months, has l ack of transportation kept you from medical appts, meetings, work or from getting things needed for daily living? No 01/15/2025 Utilities Answer Date Recorded In the past 12 months, has t he electric, gas, oil or water company threatened to shut off services in your home? No 01/15/2025 Depression Answer Date Recorded Patient Health Questionnaire-2 Score 1 01/15/2025 Internet Access Answer Date Recorded Internet Access Q1 Yes 01/15/2025 Internet Access Q2 Not on file 01/15/2025 Comments Unknown Sex and Gender Information Value Date Recorded Sex Assigned at Female 07/24/2022 10:33 AM EDT Legal Sex Female 10:33 AM EDT Gender Identity Female 07/24/2022 10:33 AM EDT Sexual Orientation Straight 07/24/2022 10 :33 AM EDT documented as of this encounter Plan of Treatment Upcoming Encounters Date Type Department Care Team (Late st Contact Info) Description 02/18/2025 9:00 AM EDT Telemedicine [facility] [address] [place] [address] Itzel Ashford MD [address] [place] [address] documented as of this encounter Visit Diagnoses Not on filedocumented in this encounter Additional Health Concerns Assessment Noted Time PHQ-9 Depression Total Score: 6 01/16/20 25 9:16 AM EDT documented as of this encounter Care Teams Grades 9 Thru 12 Visiting Teacher Relationship Specialty Start Date End Date Itzel Ashfodr MD [address] [place] [address] PCP - General Family Medicine 11/21/17 documented as of this encounter
--- OUTSIDE RECORDS SUMMARY | 2025-01-15 11:57 | XMS_ITS | Encounter Summary ---
Author Organization [employer] Address [address] [place] [address] [address] [place] [address] Care Team Providers Care Die Mounter Name Role Phone Itzel Ashford MD Primary Care Provider [phone] Reason for Referral * Imaging (Routine) - Closed Specialty Diagnoses / Procedures Referred By Contac t Referred To Contact Radiology Diagnoses Breast cancer screening by mammogram Procedures BI Mammogram Screening Tomosynthesis Bilateral Itzel Ashford MD [address] [place] [address] Phone: tel: fax: [address] Phone: tel: fax: Referral ID Status Reason Start Date Expiration Date Visits Re quested Visits Authorized [id number] Closed 01/15/2025 01/15/2026 1 1 Encounter Details Date Type Department Care Team (Late st Contact Info) Description 01/15/2025 9:15 AM EDT Office Visit [facility] [address] [place] [address] Iztel Ashford MD [address] [place] [address] Screening for colon cancer (Primary Dx); Benign essential hypertension; Iron deficiency anemia due to chronic blood loss; Mixed anxiety depressive disorder; H/O gastric sleeve; Breast cancer screening by mammogram Social History Tobacco Use Types Packs/Day Years [...] AM EDT documented as of this encounter Last Filed Vital Signs Vital Sign Reading Time Taken Comments Blood Pressure 114/74 01/15/2025 9:14 AM EDT Pulse 76 01/15/2025 9:14 AM EDT Temperature 36.6 ??C (97.9 ??F) 01/15/2025 9:14 AM ED T Respiratory Rate 20 01/15/2025 9:14 AM EDT Oxygen Saturation 98% 01/15/2025 9:14 AM EDT Inhaled Oxygen Concentration - - Weight 93 kg (205 lb) 01/15/2025 9:14 AM EDT Height 154.9 cm (5' 1 ) 01/15/2025 9:14 AM EDT Body Mass Index 38.73 01/15/2025 9:14 AM EDT documented in this encounter Plan of Treatment Upcoming Encounters Date Type Department Care Team (Late st Contact Info) Description 02/18/2025 9:00 AM EDT Telemedicine [facility] [address] [place] [address] Itzel Ashford MD [address] [place] [address] Scheduled Orders Name Type Priority Associated Diagnoses Orde r Schedule Lipid Panel, Standard Lab Routine Screening for colon cancer Benign essential hypertension Iron deficiency anemia due to chronic blood loss Mixed anxiety depressive disorder Expected: 01/15/2025 (Approximate), Expires: 01/15/2026 CBC auto differential Lab Routine Screening for colon cancer Benign essential hypertension Iron deficiency anemia due to chronic blood loss Mixed anxiety depressive disorder Expected: 01/15/2025 (Approximate), Expires: 01/15/2026 Cologuard?? colon cancer screening Lab Routine Screening for colon cancer Benign essential hypertension Iron deficiency anemia due to chronic blood loss Mixed anxiety depressive disorder Ordered: 01/15/2025 Basic Metabolic Panel, Fasting Lab Routine Screening for colon cancer Benign essential hypertension Iron deficiency anemia due to chronic blood loss Mixed anxiety depressive disorder Expected: 01/15/2025 (Approximate), Expires: 01/15/2026 Hepatic Function Panel Lab Routine Screening for colon cancer Benign essential hypertension Iron deficiency anemia due to chronic blood loss Mixed anxiety depressive disorder Expected: 01/15/2025 (Approximate), Expires: 01/15/2026 Vitamin D, 25-Hydroxy, Total, Immunoassay Lab Routine Screening for colon cancer Benign essential hypertension Iron deficiency anemia due to chronic blood loss Mixed anxiety depressive disorder Expected: 01/15/2025 (Approximate), Expires: 01/15/2026 TSH W/Reflex to FT4 Lab Routine Screening for colon cancer Benign essential hypertension Iron deficiency anemia due to chronic blood loss Mixed anxiety depressive disorder Expected: 01/15/2025 (Approximate), Expires: 01/15/2026 Hemoglobin A1c Lab Routine Screening for colon cancer Benign essential hypertension Iron deficiency anemia due to chronic blood loss Mixed anxiety depressive disorder Expected: 01/15/2025 (Approximate), Expires: 01/15/2026 Estradiol Lab Routine Screening for colon cancer Benign essential hypertension Iron deficiency anemia due to chronic blood loss Mixed anxiety depressive disorder Expected: 01/15/2025, Expires: 01/15/2026 Albumin, Random Urine W/Creatinine Lab Routine Benign essential hypertension Expected: 01/15/2025 (Approximate), Expires: 01/15/2026 Vitamin B12/Folate, Serum Panel Lab Routine H/O gastric sleeve Expected: 01/15/2025, Expires: 01/15/2026 BI Mammogram Screening Tomosynthesis Bilateral Imaging Routine Breast cancer screening by mammogram Expected: 01/15/2025, Expires: 03/17/2026 documented as of this encounter Visit Diagnoses Diagnosis Screening for colon cancer- Primary Special screening for malignant neoplasms, colon Benign essential hypertension Essential hypertension, benign Iron deficiency anemia due to chronic blood loss Iron deficiency anemia secondary to blood loss (chronic) Mixed anxiety depressive disorder H/O gastric sleeve Breast cancer screening by mammogram documented in this encounter Additional Health Concerns Assessment Noted Time PHQ-9 Depression Total Score: 6 01/16/20 25 9:16 AM EDT documented as of this encounter Care Teams Die Mounter Relationship Specialty Start Date End Date Itzel Ashford MD [address] [place] [id number] PCP - General Family Medicine 11/21/17 documented as of this encounter
--- OUTSIDE RECORDS SUMMARY | 2025-01-15 11:57 | XMS_ITS | Encounter Summary ---
Author Organization [employer] Address [address] [facility] [address] [place] [address] Care Team Providers Care Purchasing Internship Name Role Phone Itzel Ashford MD Primary Care Provider [phone] Reason for Visit * Reason Onset Date Comments Nurse Triage 07/24/2023 Encounter Details Date Type Department Care Team (Late st Contact Info) Description 07/24/2023 Telephone [facility] MED & PEDS [address] [place], [place] [phone] Itzel Ashford MD [address] [place] [address] Nurse Triage Social History Tobacco Use Types Packs/Day Years Used Date Smoking Tobacco: Never Assessed Comments Unknown Sex and Gender Information Value Date Recorded Sex Assigned at Female 07/24/2022 10:33 AM EDT Legal Sex Female 10:33 AM EDT Gender Identity Female 07/24/2022 10:33 AM EDT Sexual Orientation Straight 07/24/2022 10 :33 AM EDT documented as of this encounter Miscellaneous Notes * Telephone Encounter - Sheryl Mendoza RN - 07/24/2023 2:22 PM EDT Call to monique Garcia seen at [facility] ED for elevated BP readings. Per pt was 190s/90,pt was also having CP. Pt was given lisinopril/hctz 10mg-25mg to take 1 daily. Denies any CP today.Pt advised to follow up with PCP since started on BP med. Pt picking up today. Pt given appt for this week. Protocol Used: Blood Pressure - High (Adult) Protocol-Based Disposition: See in Office or Video Visit within 3 Days Future Appointments Date Time Provider Department Center 07/26/2023 3:30 PM Itzel Ashford MD [facility] Video visit offer not recorded Positive Triage Question: * Systolic BP >= 160 OR Diastolic >= 100 * All higher-acuity triage questions were negative Care Advice Discussed: * High Blood Pressure * High Blood Pressure - Lifestyle Modifications * Reasons To Call Back - Headache, blurred vision, difficulty talking, or difficulty walking occurs - Chest pain or difficulty breathing occurs - You want to go into the office for a blood pressure check - You become worse * Telephone Encounter - Hailey Bush - 07/24/2023 1:52 PM EDT Symptom: Dizziness Outcome: Schedule an urgent appointment (within 4 hours) or talk to a nurse or provider soon Reason: Started within the past 3 days, pt was seen on 07/23 at [facility] for high blood pressure. Was advised will forward to nurses for f/u The caller accepted this outcome Please contact pt at [phone] documented in this encounter Plan of Treatment Upcoming Encounters Date Type Department Care Team ([facility] st Contact Info) Description 02/18/2025 9:00 AM EDT Telemedicine [facility] MED & PEDS [address] [place] [address] Itzel Ashford MD [address] [place] [address] documented as of this encounter Visit Diagnoses Not on filedocumented in this encounter Care Teams Purchasing Internship Relationship Specialty Start Date End Date Itzel Ashford MD [address] [place] [address] PCP - General Family Medicine 11/21/17 documented as of this encounter
--- OUTSIDE RECORDS SUMMARY | 2025-01-15 11:57 | XMS_ITS | Clinical Summary ---
Author Organization [employer] Address [address] [facility] [address] [place] [address] Care Team Providers Care Continuous Miner Name Role Phone Itzel Ashford MD Primary Care Provider [phone] Allergies No known active allergies Medications Blood Pressure kitIndications:B enign essential hypertension Use to check blood pressure daily 1 kit 08/28/20 23 Active lisinopril-hydro CHLOROthiazide 20-25 MG tablet TAKE 1 TABLET BY MOUTH EVERY DAY 90 tablet 3 07/25/20 24 Active cholecalciferol (Vitamin D-3) 25 MCG (1000 UT) capsule Take 1 capsule (25 mcg) by mouth Once per day. 90 capsule 3 01/16/20 25 Active cholecalciferol (Vitamin D-3) 25 MCG (1000 UT) capsule Take 1 capsule by mouth. 09/15/20 20 025 Discontinued(Re order (will not trigger notification to Pharmacy)) Active Problems Problem Noted Date Diagnosed Date Mixed anxiety depressive disorder 07/26/2023 07/26/2023 Iron deficiency anemia due to chronic blood loss 09/11/2019 07/26/2023 Benign essential hypertension 11/21/2017 Obstructive sleep apnea of adult 05/22/2013 07/26/2023 Overview (07/26/2023): mild by sleep study Encounters Date Type Department Care Team Description 01/15/2025 9:15 AM EDT Office Visit [facility] MED & PEDS [address] [place] [address] Itzel Ashford MD Screening for colon cancer (Primary Dx); Benign essential hypertension; Iron deficiency anemia due to chronic blood loss; Mixed anxiety depressive disorder; H/O gastric sleeve; Breast cancer screening by mammogram 01/15/2025 Travel 01/05/2025 Patient Outreach [facility] MEDICINE [address] [place] [address] Itzel Ashford MD Pre-visit Planning (Pre visit planning LVM ) 12/05/2024 Population Health Risk Score [facility] () Department [address] [place] [id number] Provider, Population Health Generic from Last 3 Months Social History Tobacco Use Types Packs/Day Years [...] Orientation Straight 07/24/2022 10 :33 AM EDT Last Filed Vital Signs Vital Sign Reading [...] Mass Index 38.73 01/15/2025 9:14 AM EDT Plan of Treatment Upcoming Encounters Date Type Department Care Team ([facility] st Contact Info) Description 02/18/2025 9:00 AM EDT Telemedicine [facility] MED & PEDS [address] [place] [address] Itzel Ashford MD [address] [place] [address] Health Maintenance Due Date Last Done Comments CT Colonography 1976 Colonoscopy 1976 Colorectal Cancer Screening 1976 FIT DNA/Cologuard 1976 FIT 1976 FOBT 1976 HIV Screening 1976 Sigmoidoscopy 1976 Tobacco Screening 1988 Family Planning (PISQ) 1991 Hepatitis C Screening 1994 Pap Smear 1997 DTaP/Tdap/Td Vaccines (1 - Tdap) 08/11/2008 08/10/2008, 08/10/2008 Mammogram 08/31/2022 08/31/2020 COVID-19 Vaccine (3 season) 2024 05/20/2021, 04/29/2021 Influenza Vaccine (#1) 2024 4, 08/04/2013, 09/04/2011, Additional history exists Cervical Cancer Screening 09/11/2024 HPV/Cotest 09/11/2024 09/11/2019 Alcohol/Substance Use Screening 01/15/2026 01/15/2025 Depression Screening 01/15/2026 01/15/2025, 01/16/20 25 SDOH Screening 01/15/2026 01/15/2025 Lipid Panel 02/11/2026 02/11/2021, 08/20/2020 Zoster Vaccines (1 of 2) 2026 RSV Patients and Patients Aged 60 years or older (1 - 1-dose 75+ series) 2051 Hepatitis A Vaccines Completed 10/21/2009, 08/10/20 Hepatitis B Vaccines Completed 10/21/2009, 02/08/2009, 08/10/2008 Pneumococcal Vaccine: Pediatrics (0 to 5 Years) and At-Risk Patients (6 to 49) Years) Aged Out 08/18/2014, 08/10/2008 No longer eligibl e based on patient's age to complete this topic HIB Vaccines Aged Out No longer eligi ble based on patient's age to complete this topic HPV Vaccines Aged Out No longer eligi ble based on patient's age to complete this topic IPV Vaccines Aged Out No longer eligi ble based on patient's age to complete this topic Meningococcal Vaccine Aged Out No [place] zulema eligible based on patient's age to complete this topic RSV under 20 months Aged Out No longe r eligible based on patient's age to complete this topic Rotavirus Vaccines Aged Out No longer eligible based on patient's age to complete this topic Procedures Procedure Name Priority Date/Time Associated Diagnosis Comments LIPID PANEL, STANDARD Routine 02/11/2021 9:08 AM EDT MAMMOGRAM GENERIC Routine 08/31/2020 3:1 9 PM EST ZZZ HISTORICAL HPV MRNA E6/E7 Routine 09/11/2019 12:00 AM EST from Last 3 Months or Most Recently Relevant to Health Maintenance Results * (ABNORMAL) LIPID PANEL, STANDARD (02/11/2021 9:08 AM EDT) Chol/HDLC Ratio 3.7 <5.0 (calc) [facility] Cholesterol, Total 190 <200 mg/dL [facility] HDL Cholesterol 52 > OR = 50 mg/dL [facility] LDL Cholesterol 111(H) mg/dL (calc) [facility] Comment: Reference range: <100 ?? Desirable range <100 mg/dL for primary prevention; ?? <70 mg/dL for patients with CHD or diabetic patients ?? with > or = 2 CHD risk factors. ?? LDL-C is now calculated using the Bryant ?? calculation, which is a validated novel method providing ?? better accuracy than the Friedewald equation in the ?? estimation of LDL-C. ?? Kev THURSTON et al. ALF. 2013;310(19): 1667-9669 ?? (http://TruQu.Coho Data/faq/ZFI225) Non-HDL Cholesterol 138(H) <130 mg/dL (calc) [facility] Comment: For patients with diabetes plus 1 major ASCVD risk ?? factor, treating to a non-HDL-C goal of <100 mg/dL ?? (LDL-C of <70 mg/dL) is considered a therapeutic ?? option. Triglycerides 159(H) <150 mg/dL [facility] 02/11/2021 9:08 AM EDT us Itzel Ashford MD LAB BLOOD ORDERABLES Final Re sult [facility] [address] * Mammography Report 1 (08/31/2020 3:19 PM EST) Anatomical Region Laterality Modality Breast Bilateral Mammography 08/31/2020 3:19 PM EST Narrative 09/01/2020 10:00 AM EST Refer to the Notes tab for result details [facility] Procedure: Mammography Report 1 Procedure Note Provider, MD Rizwan - 12/16/2022 Refer to the Notes tab for result details [facility] Procedure: Mammography Report 1 us Itzel Ashford MD IMG BI PROCEDURES Final Resul t * HPV mRNA E6/E7 (09/11/2019 12:00 AM EST) HPV mRNA E6/E7 Not Detected NOT DETECTED [facility] Comment: This test was performed using the APTIMA(R) HPV Assay ([employer] This assay detects E6/E7 viral messenger RNA (mRNA) from 14 high-risk HPV types (16,18,31,33,35,39,45,51, 52,56,58,59,66,68). For additional information please refer to: http://education.c8apps/faq/XGX875p6 (This link is being provided for informational/ educational purposes only.) The analytical performance characteristics of this assay have been determined by [employer] [place], [place]. The modifications have not been cleared or approved by the FDA. This assay has been validated pursuant to the CLIA regulations and is used for clinical purposes. Test Performed by [facility], [employer] [place], [address] [place] [address] Salvador Andrade M.D., Ph.D., Director of Laboratories , CLIA [id number] Please note: ??Effective 06/05/2016, HPV testing will be performed using [employer]'s APTIMA test which targets mRNA. Detecting mRNA instead of DNA, as in older methods, offers significant improvements in specificity. 09/11/2019 us Itzel Ashford MD HISTORICAL/NON ORDERABLE LABS Final Result [facility] [address] from Last 3 Months or Most Recently Relevant to Health Maintenance Insurance ID [id number] Care Teams Continuous Miner Relationship Specialty Start Date End Date Itzel Ashford MD [address] [place] [id number] PCP - General Family Medicine 11/21/17
--- OUTSIDE RECORDS SUMMARY | 2025-01-15 11:57 | XMS_ITS | Encounter Summary ---
Author Organization [employer] Address [address] [place] [address] [address], [place] [address] Care Team Providers Care Guidance Counselor Name Role Phone Itzel Ashford MD Primary Care Provider [phone] Encounter Details Date Type Department Care Team ([facility] Contact Info) Description 08/27/2023 Orders Only [facility] MED & PEDS [address] [place] [address] Itzel Ashford MD [address] [place] [address] Social History Tobacco Use Types Packs/Day Years [...] Upcoming Encounters Date Type Department Care Team ([facility] Contact Info) Description 02/18/2025 9:00 AM EDT Telemedicine [facility] MED & PEDS [address] [place] [address] Itzel Ashford MD [address] [place] [address] documented as of this encounter Visit Diagnoses Not on filedocumented in this encounter Care Teams Guidance Counselor Relationship Specialty Start Date End Date Itzel Ashford MD [address] [place] [id number] PCP - General Family Medicine 11/21/17 documented as of this encounter
--- OUTSIDE RECORDS SUMMARY | 2025-01-15 11:57 | XMS_ITS | Encounter Summary ---
Author Organization [employer] Address [address] [facility] [address] [place] [address] Care Team Providers Care Consultants Intern Name Role Phone Itzel Ashford MD Primary Care Provider [phone] Reason for Visit * Reason Onset Date Comments Triage 01/02/2023 Encounter Details Date Type Department Care Team (Late st Contact Info) Description 01/02/2023 Telephone [facility] CH[facility] MED & PEDS [address] [place], [place] [phone] Itzel Ashford MD [address] [place] [address] Triage Social History Tobacco Use Types Packs/Day Years Used Date Smoking Tobacco: Never Assessed Comments Unknown Sex and Gender Information Value Date Recorded Sex Assigned at Female 07/24/2022 10:33 AM EDT Legal Sex Female 10:33 AM EDT Gender Identity Female 07/24/2022 10:33 AM EDT Sexual Orientation Straight 07/24/2022 10 :33 AM EDT documented as of this encounter Miscellaneous Notes * Telephone Encounter - Krista Boyd - 01/02/2023 12:36 PM EDT Symptoms: High Blood Pressure - Caller Reports, Medication Reaction Outcome: Schedule an urgent appointment (within 1 hour) or talk to a nurse or provider soon Reason: No high acuity concerns reported by caller The caller accepted this outcome Please contact pt at [phone] documented in this encounter Plan of Treatment Upcoming Encounters Date Type Department Care Team (Late st Contact Info) Description 02/18/2025 9:00 AM EDT Telemedicine [facility] MED & PEDS [address] [place] [address] Itzel Ashford MD [address] [place] [address] documented as of this encounter Visit Diagnoses Not on filedocumented in this encounter Care Teams Consultants Intern Relationship Specialty Start Date End Date Itzel Ashford MD [address] [place] [address] PCP - General Family Medicine 11/21/17 documented as of this encounter
--- OUTSIDE RECORDS SUMMARY | 2025-01-15 11:57 | XMS_ITS | Encounter Summary ---
Author Organization [employer] Address [address] [place] [address], [place] [address] Care Team Providers Care Shoe Lacer Name Role Phone Itzel Ashford MD Primary Care Provider [phone] Encounter Details Date Type Department Care Team ([facility] Contact Info) Description 08/27/2023 Orders Only [facility] MED & PEDS [address] [place] [address] Itzel Ashford MD [address] [place] [address] Social History Tobacco Use Types Packs/Day Years [...] Upcoming Encounters Date Type Department Care Team ([facility] Contact Info) Description 02/18/2025 9:00 AM EDT Telemedicine [facility] MED & PEDS [address] [place] [address] Itzel Ashford MD [address] [place] [address] documented as of this encounter Visit Diagnoses Not on filedocumented in this encounter Care Teams Shoe Lacer Relationship Specialty Start Date End Date Itzel Ashford MD [address] [place] [address] PCP - General Family Medicine 11/21/17 documented as of this encounter
[2025-01-15 14:12] LABS: MANUAL DIFF FLAG NO
[2025-01-15 14:22] LABS: Basophils Percent Auto 0.6 % (0-2); Eosinophils Absolute Auto 0.1 X10*3/uL (0.0-0.4); Eosinophils Percent Auto 1.3 % (0-4); Hematocrit 37.8 % (37.0-47.0); Hemoglobin 12.3 g/dl (12.0-16.0); Imm Gran Abs Auto 0.01 X10*3/uL (0.00-0.03); Imm Gran Pct Auto 0.2 % (0.0-0.4); Lymphocytes Absolute Auto 1.2 X10*3/uL (1.2-4.9); Lymphocytes Percent Auto 25.5 % (20-40); Mean Corpuscular HGB Conc 32.5 g/dl (31.0-35.0); Mean Corpuscular Hemoglobin 26.7 pg (27.0-33.0); Mean Platelet Volume 11.1 fL (9.4-12.3); Monocytes Absolute Auto 0.4 X10*3/uL (0.1-1.2); Monocytes Percent Auto 8.4 % (2-11); Platelet Count 292 X10*3/uL (160-400); Red Blood Count 4.61 X10*6/uL (4.20-5.50); Red Cell Distribution Width 13.3 % (11.0-16.0); White Blood Count 4.8 X10*3/uL (4.8-10.8)
[2025-01-15 14:31] LABS: Estimated Average Glucose 126 mg/dL; Hemoglobin A1C 140.7307 umol/L; Total Hemoglobin (HGBA1C) 3308.4649 umol/L
[2025-01-15 14:38] LABS: Alanine Aminotransferase 20 U/L (0-31); Albumin Level 3.8 g/dL (3.5-5.0); Alkaline Phosphatase 65 U/L (39-117); Anion Gap 7 (12-20); Aspartate Amino Transferase 24 U/L (5-31); Bilirubin Direct 0.3 mg/dL (0.0-0.5); Bilirubin Total 0.9 mg/dL (0.0-1.0); Blood Urea Nitrogen 11 mg/dL (9-16); Carbon Dioxide 30 mmol/L (22-29); Chloride 104 mmol/L (96-108); Cholesterol 192 mg/dL (<200); Estimated Glomerular Filt Rate > 60; Glucose Fasting 115 mg/dL (60-99); HDL Cholesterol 54 mg/dL (>40); LDL Cholesterol Calculated 102 mg/dL (<100); Potassium 3.7 mmol/L (3.3-5.1); Sodium 137 mmol/L (135-145); Total Protein 6.8 g/dL (6.5-8.0); Triglycerides 180 mg/dL (<150)
[2025-01-15 14:54] LABS: Creatinine Urine 265.71 mg/dL; Microalbum/Creatinine Ratio Ur 3.7 ug/mg cr (<30)
[2025-01-15 14:57] LABS: TSH reflex Free T4 0.81 uIU/mL (0.32-4.0); Vitamin D 25-OH Total 56.4 ng/mL (>30)
[2025-01-15 15:05] LABS: Folate 9.6 ng/mL (> or = 4.0); Vitamin B12 774 pg/mL (200-900)
[2025-01-24 17:49] LABS: Estradiol Free 1.35 pg/mL; Estradiol, Ultrasensitive 75 pg/mL
== END 2025-01-15 10:13 | disposition home or self-care (01) ==
LOC: HO.CHCLDS 10:12
PROVIDERS: Visit Provider Pediatrics
DX: Z12.11 Encounter for screening for malignant neoplasm of colon (principal); I10 Essential (primary) hypertension; D50.0 Iron deficiency anemia secondary to blood loss (chronic); F41.8 Other specified anxiety disorders; Z90.3 Acquired absence of stomach [part of]
CPT/HCPCS: 36415; 80048; 80061; 80076; 82043; 82306; 82570; 82607; 82670; 82681; 82746; 83036; 84443; 85025